=== PATIENT | male | born 1935 | race Caucasian/White ===

== ENCOUNTER → 2020-09-04 09:52 | Outpatient (BNVA) | payer MEDICARE, SELFPAY | PROVIDERS: PCP Hospitalist; Referring Provider Internal Medicine Medical Oncology; Visit Provider Hospitalist | DX: J44.9 Chronic obstructive pulmonary disease, unspecified (principal); R93.89 Abnormal findings on diagnostic imaging of other specified body structures; G47.33 Obstructive sleep apnea (adult) (pediatric) | CPT/HCPCS: 99212 ==

== ENCOUNTER → 2021-01-22 09:53 | Outpatient (REF) | payer MEDICARE, SELFPAY | LOC: HO.SL 09:53 | PROVIDERS: PCP Hospitalist; Visit Provider Hospitalist | DX: G47.33 Obstructive sleep apnea (adult) (pediatric) (principal) | CPT/HCPCS: 95806 ==

== ENCOUNTER → 2021-03-08 10:24 | Outpatient (BNVA) | payer MEDICARE, SELFPAY | PROVIDERS: PCP Hospitalist; Visit Provider Hospitalist | DX: G47.33 Obstructive sleep apnea (adult) (pediatric) (principal); J41.0 Simple chronic bronchitis; R93.89 Abnormal findings on diagnostic imaging of other specified body structures | CPT/HCPCS: 99212 ==

== ENCOUNTER → 2021-06-06 10:50 | Outpatient (BNVA) | payer MEDICARE, SELFPAY | PROVIDERS: PCP Hospitalist; Visit Provider Hospitalist | DX: G47.33 Obstructive sleep apnea (adult) (pediatric) (principal); J41.0 Simple chronic bronchitis; R93.89 Abnormal findings on diagnostic imaging of other specified body structures | CPT/HCPCS: 99212 ==

== ENCOUNTER → 2021-08-29 09:29 | Outpatient (BNVA) | payer MEDICARE, SELFPAY | PROVIDERS: PCP Hospitalist; Visit Provider Hospitalist | DX: G47.33 Obstructive sleep apnea (adult) (pediatric) (principal); J41.0 Simple chronic bronchitis; R93.89 Abnormal findings on diagnostic imaging of other specified body structures | CPT/HCPCS: 99212 ==

== ENCOUNTER → 2021-12-07 10:54 | Outpatient (BNVA) | payer MEDICARE, SELFPAY | PROVIDERS: PCP Hospitalist; Visit Provider Hospitalist | DX: G47.33 Obstructive sleep apnea (adult) (pediatric) (principal); J41.0 Simple chronic bronchitis; J84.9 Interstitial pulmonary disease, unspecified; R93.89 Abnormal findings on diagnostic imaging of other specified body structures | CPT/HCPCS: 99212 ==

== ENCOUNTER → 2022-10-07 09:50 | Outpatient (BNVA) | payer MEDICARE, SELFPAY | PROVIDERS: PCP Hospitalist; Visit Provider Hospitalist | DX: J41.0 Simple chronic bronchitis (principal); G47.33 Obstructive sleep apnea (adult) (pediatric); R93.89 Abnormal findings on diagnostic imaging of other specified body structures; J84.9 Interstitial pulmonary disease, unspecified | CPT/HCPCS: 99212 ==

== ENCOUNTER 2024-02-19 06:07 | Outpatient (REF) | payer MEDICARE, SELFPAY ==
[2024-02-19 06:15] LABS: MANUAL DIFF FLAG NO
[2024-02-19 06:28] LABS: Basophils Percent Auto 0.5 % (0-2); Eosinophils Absolute Auto 0.5 X10*3/uL (0.0-0.4); Eosinophils Percent Auto 8.2 % (0-4); Hematocrit 38.3 % (42.0-52.0); Hemoglobin 12.2 g/dl (14.0-18.0); Imm Gran Abs Auto 0.01 X10*3/uL (0.00-0.03); Imm Gran Pct Auto 0.2 % (0.0-0.4); Lymphocytes Absolute Auto 1.1 X10*3/uL (1.2-4.9); Lymphocytes Percent Auto 19.1 % (20-40); Mean Corpuscular HGB Conc 31.9 g/dl (31.0-36.0); Mean Corpuscular Hemoglobin 29.8 pg (27.0-33.0); Mean Corpuscular Volume 93.6 fL (80.0-98.0); Mean Platelet Volume 9.6 fL (9.4-12.4); Monocytes Absolute Auto 0.6 X10*3/uL (0.1-1.2); Monocytes Percent Auto 10.4 % (2-11); Neutrophils Absolute Auto 3.5 x10*3/uL (2.0-8.3); Neutrophils Percent Auto 61.6 % (45-73); Platelet Count 124 X10*3/uL (160-400); Red Blood Count 4.09 X10*6/uL (4.60-5.80); White Blood Count 5.6 X10*3/uL (4.8-10.8)
[2024-02-19 06:41] LABS: Alanine Aminotransferase 140 U/L (0-40); Alkaline Phosphatase 119 U/L (39-117); Anion Gap 10 (12-20); Aspartate Amino Transferase 116 U/L (5-37); Bilirubin Total 0.7 mg/dL (0.0-1.0); Blood Urea Nitrogen 24 mg/dL (9-16); Calcium 8.3 mg/dL (8.4-10.2); Carbon Dioxide 21 mmol/L (22-29); Chloride 116 mmol/L (96-108); Cholesterol 88 mg/dL (<200); Estimated Glomerular Filt Rate 52; Glucose Random 100 mg/dL (60-115); HDL Cholesterol 31 mg/dL (>40); Iron 42 mcg/dL (45-160); LDL Cholesterol Calculated 39 mg/dL (<100); Percent Iron Saturation 15 % (15-50); Potassium 3.6 mmol/L (3.3-5.1); Sodium 143 mmol/L (135-145); Total Iron Binding Capacity 272 mcg/dL (228-428); Total Protein 5.4 g/dL (6.5-8.0); Triglycerides 92 mg/dL (<150); Unsaturated Iron Binding 230 ug/dL
[2024-02-19 06:42] LABS: Estimated Average Glucose 160 mg/dL; Hemoglobin A1c % 7.2 % (<6.0)
[2024-02-19 06:55] LABS: Ferritin 137 ng/mL (20-250); Thyroid Stimulating Hormone 0.79 uIU/mL (0.32-4.0)
[2024-02-19 07:07] LABS: Folate 6.6 ng/mL (> or = 4.0); Vitamin B12 486 pg/mL (200-900)
== END 2024-02-19 06:08 | disposition home or self-care (01) ==
LOC: HO.HSH4W 06:07
PROVIDERS: Visit Provider Internal Medicine
DX: Z13.89 Encounter for screening for other disorder (principal)
CPT/HCPCS: 36415; 80053; 80061; 82607; 82728; 82746; 83036; 83540; 84443; 85025

== ENCOUNTER 2024-02-20 06:48 | Outpatient (REF) | payer MEDICARE, SELFPAY ==
[2024-02-20 08:41] LABS: HBS Num1 0.39 mIU/mL (0-7.99); HBc Num1 0.11 S/CO (0.00-0.79); HBsAGNum1 0.32 S/CO (0.00-0.99); Hepatitis B Core Antibody Nonreactive (Nonreactive); Hepatitis B Surface Antigen Negative (Negative); ~HepC Num1 0.06 S/CO (0.00-0.79); ~Hepatitis B Surface Antibody NONREACTIVE (Nonreactive); ~Hepatitis C Antibody Nonreactive (Nonreactive)
[2024-02-20 08:42] LABS: Hepatitis A Antibody IgG REACTIVE (Nonreactive); Hepatitis A Antibody IgM 0.34 Index (0-0.79); ~Hepatitis A Antibody IgG 12.11 S/CO (0.00-0.99); ~Hepatitis A Antibody IgM Nonreactive (Nonreactive)
== END 2024-02-20 06:49 | disposition home or self-care (01) ==
LOC: HO.HSH4W 06:48
PROVIDERS: Visit Provider Internal Medicine
DX: D64.9 Anemia, unspecified (principal); R79.89 Other specified abnormal findings of blood chemistry
CPT/HCPCS: 36415; 86704; 86706; 86708; 86709; 86803; 87340

== ENCOUNTER 2024-03-01 06:11 | Outpatient (REF) | payer MEDICARE, SELFPAY ==
[2024-03-01 06:15] LABS: MANUAL DIFF FLAG NO
[2024-03-01 07:06] LABS: Basophils Absolute Auto 0.1 X10*3/uL (0.0-0.2); Basophils Percent Auto 0.7 % (0-2); Eosinophils Absolute Auto 0.6 X10*3/uL (0.0-0.4); Eosinophils Percent Auto 7.5 % (0-4); Hematocrit 41.7 % (42.0-52.0); Hemoglobin 13.2 g/dl (14.0-18.0); Imm Gran Abs Auto 0.02 X10*3/uL (0.00-0.03); Imm Gran Pct Auto 0.3 % (0.0-0.4); Lymphocytes Absolute Auto 1.2 X10*3/uL (1.2-4.9); Lymphocytes Percent Auto 15.8 % (20-40); Mean Corpuscular HGB Conc 31.7 g/dl (31.0-36.0); Mean Corpuscular Volume 97.9 fL (80.0-98.0); Mean Platelet Volume 9.6 fL (9.4-12.4); Monocytes Absolute Auto 0.7 X10*3/uL (0.1-1.2); Monocytes Percent Auto 9.4 % (2-11); Neutrophils Absolute Auto 5.1 x10*3/uL (2.0-8.3); Neutrophils Percent Auto 66.3 % (45-73); Platelet Count 128 X10*3/uL (160-400); Red Blood Count 4.26 X10*6/uL (4.60-5.80); Red Cell Distribution Width 15.6 % (11.0-16.0); White Blood Count 7.7 X10*3/uL (4.8-10.8)
[2024-03-01 07:08] LABS: Alanine Aminotransferase 76 U/L (0-40); Albumin Level 3.3 g/dL (3.5-5.0); Alkaline Phosphatase 108 U/L (39-117); Aspartate Amino Transferase 76 U/L (5-37); Bilirubin Direct 0.3 mg/dL (0.0-0.5); Bilirubin Total 0.8 mg/dL (0.0-1.0)
== END 2024-03-01 06:12 | disposition home or self-care (01) ==
LOC: HO.HSH4W 06:11
PROVIDERS: Visit Provider Internal Medicine
DX: D64.9 Anemia, unspecified (principal); R79.89 Other specified abnormal findings of blood chemistry
CPT/HCPCS: 36415; 80076; 85025

== ENCOUNTER 2024-03-10 06:11 | Outpatient (REF) | payer MEDICARE, SELFPAY ==
[2024-03-10 06:53] LABS: Anion Gap 12 (12-20); Blood Urea Nitrogen 26 mg/dL (9-16); Calcium 8.7 mg/dL (8.4-10.2); Carbon Dioxide 22 mmol/L (22-29); Chloride 111 mmol/L (96-108); Estimated Glomerular Filt Rate 47; Glucose Random 103 mg/dL (60-115); Potassium 4.9 mmol/L (3.3-5.1); Sodium 140 mmol/L (135-145)
== END 2024-03-10 06:12 | disposition home or self-care (01) ==
LOC: HO.HSH4W 06:11
PROVIDERS: Visit Provider Internal Medicine
DX: E11.9 Type 2 diabetes mellitus without complications (principal); N18.9 Chronic kidney disease, unspecified
CPT/HCPCS: 36415; 80048

== ENCOUNTER 2024-03-31 06:35 | Outpatient (REF) | payer MEDICARE, SELFPAY ==
[2024-03-31 07:18] LABS: Alanine Aminotransferase 49 U/L (0-40); Albumin Level 3.3 g/dL (3.5-5.0); Alkaline Phosphatase 106 U/L (39-117); Anion Gap 10 (12-20); Aspartate Amino Transferase 33 U/L (5-37); Bilirubin Total 0.8 mg/dL (0.0-1.0); Blood Urea Nitrogen 33 mg/dL (9-16); Carbon Dioxide 22 mmol/L (22-29); Chloride 113 mmol/L (96-108); Estimated Glomerular Filt Rate 58; Glucose Random 92 mg/dL (60-115); Potassium 5.3 mmol/L (3.3-5.1); Sodium 140 mmol/L (135-145)
[2024-03-31 07:22] LABS: B Type Natriuretic Peptide 150 pg/mL (<100)
== END 2024-03-31 06:36 | disposition home or self-care (01) ==
LOC: HO.HSH4W 06:35
PROVIDERS: Visit Provider Internal Medicine
DX: I50.9 Heart failure, unspecified (principal); I48.91 Unspecified atrial fibrillation; R79.89 Other specified abnormal findings of blood chemistry
CPT/HCPCS: 36415; 80053; 83880

== ENCOUNTER 2024-04-06 06:57 | Outpatient (REF) | payer MEDICARE, SELFPAY ==
[2024-04-06 07:55] LABS: Anion Gap 12 (12-20); Blood Urea Nitrogen 39 mg/dL (9-16); Calcium 9.2 mg/dL (8.4-10.2); Carbon Dioxide 19 mmol/L (22-29); Chloride 113 mmol/L (96-108); Estimated Glomerular Filt Rate 54; Glucose Random 104 mg/dL (60-115); Potassium 5.7 mmol/L (3.3-5.1); Sodium 138 mmol/L (135-145)
== END 2024-04-06 06:58 | disposition home or self-care (01) ==
LOC: HO.HSH4W 06:57
PROVIDERS: Visit Provider Internal Medicine
DX: I50.9 Heart failure, unspecified (principal); E11.9 Type 2 diabetes mellitus without complications
CPT/HCPCS: 36415; 80048

== ENCOUNTER 2024-04-13 05:51 | Outpatient (REF) | payer MEDICARE, SELFPAY ==
[2024-04-13 06:29] LABS: Anion Gap 8 (12-20); Blood Urea Nitrogen 48 mg/dL (9-16); Calcium 8.7 mg/dL (8.4-10.2); Carbon Dioxide 19 mmol/L (22-29); Chloride 121 mmol/L (96-108); Estimated Glomerular Filt Rate 43; Glucose Random 86 mg/dL (60-115); Potassium 5.7 mmol/L (3.3-5.1); Sodium 142 mmol/L (135-145)
== END 2024-04-13 05:52 | disposition home or self-care (01) ==
LOC: HO.HSH4W 05:51
PROVIDERS: Visit Provider Internal Medicine
DX: N18.9 Chronic kidney disease, unspecified (principal); E11.9 Type 2 diabetes mellitus without complications; E87.5 Hyperkalemia
CPT/HCPCS: 36415; 80048

== ENCOUNTER 2024-04-16 06:15 | Outpatient (REF) | payer MEDICARE, SELFPAY ==
[2024-04-16 07:40] LABS: Alanine Aminotransferase 57 U/L (0-40); Albumin Level 3.2 g/dL (3.5-5.0); Alkaline Phosphatase 102 U/L (39-117); Anion Gap 11 (12-20); Aspartate Amino Transferase 33 U/L (5-37); Bilirubin Total 0.6 mg/dL (0.0-1.0); Blood Urea Nitrogen 43 mg/dL (9-16); Calcium 8.9 mg/dL (8.4-10.2); Carbon Dioxide 17 mmol/L (22-29); Chloride 119 mmol/L (96-108); Estimated Glomerular Filt Rate 53; Glucose Random 106 mg/dL (60-115); Potassium 4.9 mmol/L (3.3-5.1); Sodium 142 mmol/L (135-145); Total Protein 5.8 g/dL (6.5-8.0)
== END 2024-04-16 06:16 | disposition home or self-care (01) ==
LOC: HO.HSH4W 06:15
PROVIDERS: Nurse Practitioner Family; Visit Provider Nurse Practitioner
DX: E87.5 Hyperkalemia (principal)
CPT/HCPCS: 36415; 80053

== ENCOUNTER 2024-04-20 05:28 | Outpatient (REF) | payer MEDICARE, SELFPAY ==
[2024-04-20 06:58] LABS: Anion Gap 9 (12-20); Blood Urea Nitrogen 47 mg/dL (9-16); Calcium 8.6 mg/dL (8.4-10.2); Carbon Dioxide 18 mmol/L (22-29); Chloride 120 mmol/L (96-108); Estimated Glomerular Filt Rate 42; Glucose Fasting 120 mg/dL (60-99); Potassium 5.2 mmol/L (3.3-5.1); Sodium 142 mmol/L (135-145)
== END 2024-04-20 05:29 | disposition home or self-care (01) ==
LOC: HO.HSH4W 05:28
PROVIDERS: Visit Provider Internal Medicine
DX: E11.9 Type 2 diabetes mellitus without complications (principal); N18.9 Chronic kidney disease, unspecified; I50.9 Heart failure, unspecified
CPT/HCPCS: 36415; 80048

== ENCOUNTER 2024-04-28 06:25 | Outpatient (REF) | payer MEDICARE, SELFPAY ==
[2024-04-28 07:32] LABS: Anion Gap 9 (12-20); Blood Urea Nitrogen 41 mg/dL (9-16); Calcium 8.7 mg/dL (8.4-10.2); Carbon Dioxide 15 mmol/L (22-29); Chloride 122 mmol/L (96-108); Estimated Glomerular Filt Rate 41; Glucose Random 79 mg/dL (60-115); Potassium 5.4 mmol/L (3.3-5.1); Sodium 141 mmol/L (135-145)
[2024-04-28 07:37] LABS: B Type Natriuretic Peptide 133 pg/mL (<100)
== END 2024-04-28 06:26 | disposition home or self-care (01) ==
LOC: HO.HSH4W 06:25
PROVIDERS: Visit Provider Internal Medicine
DX: I50.9 Heart failure, unspecified (principal); N18.9 Chronic kidney disease, unspecified
CPT/HCPCS: 36415; 80048; 83880

== ENCOUNTER 2024-05-06 05:30 | Outpatient (REF) | payer MEDICARE, SELFPAY ==
[2024-05-06 07:14] LABS: Blood Urea Nitrogen 35 mg/dL (9-16); Calcium 8.4 mg/dL (8.4-10.2); Carbon Dioxide 22 mmol/L (22-29); Chloride 115 mmol/L (96-108); Estimated Glomerular Filt Rate 46; Glucose Fasting 139 mg/dL (60-99); Potassium 4.2 mmol/L (3.3-5.1); Sodium 141 mmol/L (135-145)
[2024-05-06 07:25] LABS: Anion Gap 8 (12-20)
== END 2024-05-06 05:31 | disposition home or self-care (01) ==
LOC: HO.HSH4W 05:30
PROVIDERS: Visit Provider Internal Medicine
DX: N18.9 Chronic kidney disease, unspecified (principal); E87.5 Hyperkalemia
CPT/HCPCS: 36415; 80048

== ENCOUNTER 2024-07-20 14:26 | Outpatient (REF) | payer MEDICARE, SELFPAY | END 2024-07-20 14:27 | disposition home or self-care (01) | LOC: HO.HSH4W 14:26 | PROVIDERS: Visit Provider Internal Medicine | DX: Z13.89 Encounter for screening for other disorder (principal) | CPT/HCPCS: 87070; 87205 ==

== ENCOUNTER 2024-07-21 06:21 | Outpatient (REF) | payer MEDICARE, SELFPAY ==
[2024-07-21 06:24] LABS: MANUAL DIFF FLAG NO
[2024-07-21 06:48] LABS: Basophils Absolute Auto 0.1 X10*3/uL (0.0-0.2); Basophils Percent Auto 0.7 % (0-2); Eosinophils Absolute Auto 0.6 X10*3/uL (0.0-0.4); Eosinophils Percent Auto 7.8 % (0-4); Hemoglobin 15.2 g/dl (14.0-18.0); Imm Gran Abs Auto 0.02 X10*3/uL (0.00-0.03); Imm Gran Pct Auto 0.2 % (0.0-0.4); Lymphocytes Absolute Auto 1.2 X10*3/uL (1.2-4.9); Lymphocytes Percent Auto 14.5 % (20-40); Mean Corpuscular HGB Conc 32.3 g/dl (31.0-36.0); Mean Corpuscular Hemoglobin 30.5 pg (27.0-33.0); Mean Corpuscular Volume 94.4 fL (80.0-98.0); Mean Platelet Volume 10.4 fL (9.4-12.4); Monocytes Absolute Auto 0.8 X10*3/uL (0.1-1.2); Monocytes Percent Auto 9.1 % (2-11); Neutrophils Absolute Auto 5.6 x10*3/uL (2.0-8.3); Neutrophils Percent Auto 67.7 % (45-73); Platelet Count 130 X10*3/uL (160-400); Red Blood Count 4.98 X10*6/uL (4.60-5.80); Red Cell Distribution Width 14.6 % (11.0-16.0); White Blood Count 8.2 X10*3/uL (4.8-10.8)
[2024-07-21 07:26] LABS: Erythrocyte Sedimentation Rate 4 MM/HR (0-15)
== END 2024-07-21 06:22 | disposition home or self-care (01) ==
LOC: HO.HSH4W 06:21
PROVIDERS: Visit Provider Internal Medicine
DX: M86.9 Osteomyelitis, unspecified (principal)
CPT/HCPCS: 36415; 85025; 85652

== ENCOUNTER 2024-08-25 05:32 | Outpatient (REF) | payer MEDICARE, SELFPAY ==
[2024-08-25 05:36] LABS: MANUAL DIFF FLAG NO
[2024-08-25 06:02] LABS: Basophils Percent Auto 0.4 % (0-2); Eosinophils Absolute Auto 0.6 X10*3/uL (0.0-0.4); Eosinophils Percent Auto 8.7 % (0-4); Hemoglobin 13.5 g/dl (14.0-18.0); Imm Gran Abs Auto 0.03 X10*3/uL (0.00-0.03); Imm Gran Pct Auto 0.4 % (0.0-0.4); Lymphocytes Absolute Auto 1.1 X10*3/uL (1.2-4.9); Mean Corpuscular HGB Conc 31.4 g/dl (31.0-36.0); Mean Corpuscular Hemoglobin 30.2 pg (27.0-33.0); Mean Corpuscular Volume 96.2 fL (80.0-98.0); Mean Platelet Volume 10.1 fL (9.4-12.4); Monocytes Absolute Auto 0.8 X10*3/uL (0.1-1.2); Monocytes Percent Auto 11.1 % (2-11); Neutrophils Absolute Auto 4.7 x10*3/uL (2.0-8.3); Neutrophils Percent Auto 64.4 % (45-73); Platelet Count 118 X10*3/uL (160-400); Red Blood Count 4.47 X10*6/uL (4.60-5.80); Red Cell Distribution Width 14.7 % (11.0-16.0); White Blood Count 7.3 X10*3/uL (4.8-10.8)
[2024-08-25 06:24] LABS: Albumin Level 3.2 g/dL (3.5-5.0); Alkaline Phosphatase 181 U/L (39-117); Anion Gap 12 (12-20); Aspartate Amino Transferase 62 U/L (5-37); Bilirubin Total 0.6 mg/dL (0.0-1.0); Blood Urea Nitrogen 45 mg/dL (9-16); Calcium 8.4 mg/dL (8.4-10.2); Carbon Dioxide 17 mmol/L (22-29); Chloride 116 mmol/L (96-108); Estimated Glomerular Filt Rate 40; Glucose Random 263 mg/dL (60-115); Potassium 4.6 mmol/L (3.3-5.1); Sodium 140 mmol/L (135-145); Total Protein 6.3 g/dL (6.5-8.0)
[2024-08-25 06:35] LABS: Alanine Aminotransferase 119 U/L (0-40)
== END 2024-08-25 05:33 | disposition home or self-care (01) ==
LOC: HO.HSH4W 05:32
PROVIDERS: Visit Provider Internal Medicine
DX: N18.9 Chronic kidney disease, unspecified (principal); D64.9 Anemia, unspecified
CPT/HCPCS: 36415; 80053; 85025

== ENCOUNTER 2024-09-17 05:49 | Outpatient (REF) | payer MEDICARE, SELFPAY ==
[2024-09-17 06:01] LABS: Ammonia 38 umol/L (13-55)
== END 2024-09-17 05:50 | disposition home or self-care (01) ==
LOC: HO.HSH4W 05:49
PROVIDERS: Visit Provider Internal Medicine
DX: R79.89 Other specified abnormal findings of blood chemistry (principal)
CPT/HCPCS: 36415; 82140

== ENCOUNTER 2024-11-25 06:06 | Outpatient (REF) | payer MEDICARE, SELFPAY ==
[2024-11-25 06:09] LABS: MANUAL DIFF FLAG NO
--- OUTSIDE RECORDS SUMMARY | 2024-11-25 06:09 | XMS_ITS | Clinical Summary ---
Author Organization [facility] Address [address] [facility] [address] [place] [address] Phone Care Team Providers Care Manager Privacy Name Role Phone Chris Newman MD Primary Care Provider [phone] Allergies No known active allergies Medications acetaminophen (TYLENOL) 500 MG tablet Take 325 mg by mouth 4 (four) times a day if needed Active apixaban (ELIQUIS) 5 MG tablet Take 1 tablet by mouth 2 (two) times a day Active lisinopril-hydr oCHLOROthiazide (PRINZIDE,ZESTO RETIC) 20-25 MG per tablet Take 1 tablet by mouth 1 (one) time each day Active rosuvastatin (CRESTOR) 20 MG tablet Take 1 tablet by mouth every night Active terazosin (HYTRIN) 1 MG capsule Take 1 tablet by mouth 1 (one) time each day Active aspirin (ST YO) 81 MG EC tablet Take 81 mg by mouth 1 (one) time each day Active omega-3 (FISH OIL) 1000 MG capsule Take 1,000 mg by mouth 3 times a day Active Magnesium Cl-Calcium Carbonate (Slow-Mag) 71.5-119 MG tablet delayed-release Take 1 tablet by mouth 2 (two) times a day Active glyBURIDE micronized (GLYNASE) 3 MG tablet Take 3 mg by mouth 1 (one) time each day Active metFORMIN (GLUCOPHAGE) 1000 MG tablet Take 1,000 mg by mouth 1 (one) time each day Active glyBURIDE (DIABETA) 5 MG tablet Take 5 mg by mouth 1 (one) time each day with breakfast 1 Active metFORMIN (GLUCOPHAGE) 500 MG tablet Take 500 mg by mouth 1 Active albuterol HFA (PROVENTIL HFA;VENTOLIN HFA) 108 (90 Base) MCG/ACT inhaler 1 Active PENICILLIN V POTASSIUM PO Take 500 mg by mouth 2 (two) times a day Active Active Problems Problem Noted Date Diagnosed Date 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 Alcohol intake above recommended sensible limits 12/03/2021 Tobacco dependence syndrome 12/03/2021 Stage 3a chronic kidney disease 05/30/2021 Atrial fibrillation 05/29/2021 Chronic obstructive pulmonary disease 05/29/2021 Disorder due to type 2 diabetes mellitus 021 Hypertension 05/29/2021 Obstructive sleep apnea syndrome 05/29/2021 Osteoarthritis 05/29/2021 Resolved Problems Problem Noted Date Diagnosed Date Resolved Date Cellulitis of unspecified part of limb 12/03/2021 06/11/2022 Mixed hyperlipidemia 05/29/2021 022 Diabetes mellitus 02/23/2020 05/30/2021 Atrial fibrillation 02/23/2020 05/30/20 21 Chronic obstructive pulmonary disease 02/23/2020 05/30/2021 Hyperlipidemia 02/23/2020 06/11/2022 Immunizations Name Administration Dates Next Due Influenza Split High Dose Preservative Free IM 0 07/26/2019 Zoster 04/14/2020,11/02/2019 Social History Tobacco Use Types Packs/Day Years Used Date Smoking Tobacco: Former Cigars Smokeless Tobacco: Never Tobacco Cessation:Counseling Given: No Alcohol Use Standard Drinks/Week Comments Not Asked 0 (1 standard drink = 0.6 oz pur e alcohol) occasionally Sex and Gender Information Value Date Recorded Sex Assigned at Not on file Legal Sex Male 2:31 PM EDT Gender Identity Not on file Sexual Orientation Not on file Last Filed Vital Signs Vital Sign Reading Time Taken Comments Blood Pressure 160/92 10/07/2023 8:35 AM EST Pulse 78 10/07/2023 8:35 AM EST Temperature - - Respiratory Rate - - Oxygen Saturation 93% 10/07/2023 8:35 AM EST Inhaled Oxygen Concentration - - Weight 89.4 kg (197 lb) 10/07/2023 8:35 AM EST Height 188 cm (6' 2 ) 10/07/2023 8:35 AM EST Body Mass Index 25.29 10/07/2023 8:35 AM EST Plan of Treatment Health Maintenance Due Date Last Done Comments Pneumococcal Vaccine: 65+ Ye ars (1 of 2 - PCV) 1941 Diabetes: Ophthalmology Exam 04/13/2021 Diabetes: Pedal Pulse Checked 04/13/2021 Diabetes: Sensory Foot Exam 04/13/2021 Diabetes: Visual Foot Exam 04/13/2021 Diabetes: Hemoglobin A1C 02/26/2022 11/29/2021 Influenza Vaccine (#1) 2024 07/26/2019 Hepatitis B Vaccine Aged Out No longe r eligible based on patient's age to complete this topic Procedures Procedure Name Priority Date/Time Associated Diagnosis Comments HEMOGLOBIN A1C Routine 11/29/2021 8:16 AM EST from Last 3 Months or Most Recently Relevant to Health Maintenance Results * (ABNORMAL) Hemoglobin A1c (11/29/2021 8:16 AM EST) Hemoglobin A1C 8.1(H) (4.0-5.6) % [facility] Comment: MONITORING: In known diabetic patients, hemoglobin A1c targets should be discussed with health care provider. DIAGNOSTIC USE: ??The [place] Diabetes Association (ADA) and the World Health Organization (WHO) recommend the use of HbA1c to diagnose diabetes using a threshold of 6.5%. Patients who have an HbA1c between 5.7% and 6.4% are considered at increased risk for developing diabetes in the future. CAUTION: Falsely low HbA1c results may be observed in patients with hemolytic anemia, homozygous forms of abnormal hemoglobin (e.g. SS, CC, SC), , recent blood loss or hemoglobin F greater than 7%. Fructosamine may be used as an alternate test in these cases. REFERENCE: ADA: Standards of Medical Care in Diabetes 2020, The Journal of Clinical and Applied Research and Education Volume 43, Supplement 1 Testing performed or reported by [facility], a Service of [facility], [address] [place] [id number] Isaac Flores MD, Stage Settings Painter [facility]# [id number] 11/29/2021 8:16 AM EST 11/29/2021 8:26 AM EST us Otoniel Peacock MD LAB BLOOD ORDERABLES Final Re sult [facility] from Last 3 Months or Most Recently Relevant to Health Maintenance Insurance [employer] [place] [id number] [employer] Care Teams Manager Privacy Relationship Specialty Start Date End Date Chris Newman MD [address] PCP - General Internal Medicine 12/12/22
--- OUTSIDE RECORDS SUMMARY | 2024-11-25 06:09 | XMS_ITS | Encounter Summary ---
Author Organization [facility] [place] [address] Care Team Providers Care Rabbit Fancier Name Role Phone Eusebio Maradiaga MD Primary Care Provider [phone] Encounter Details Date Type Department Care Team (Late st Contact Info) Description 11/10/2024 Telephone [facility] - [facility] [address] [facility] 154 [place] [phone] Anisha Mills MD 300 [facility] 154 [place] [address] Social History Tobacco Use Types Packs/Day Years Used Date Smoking Tobacco: Former Cigarettes 1 17 1 [birth year]/16/1947 - 10/15/1965 Smokeless Tobacco: Never Alcohol Use Standard Drinks/Week Comments Yes 0 (1 standard drink = 0.6 oz pur e alcohol) Sex and Gender Information Value Date Recorded Sex Assigned at Not on file Gender Identity Not on file Sexual Orientation Not on file documented as of this encounter Progress Notes * Lawrence Valle - 11/10/2024 11:49 AM EST [facility]. She told me to call back at 3 or 3:30 todaybecause now is not a good time to send a manual transmission. documented in this encounter Plan of Treatment Not on file documented as of this encounter Visit Diagnoses Not on filedocumented in this encounter Care Teams Rabbit Fancier Relationship Specialty Start Date End Date Eusebio Maradiaag MD [address] [place] [address] PCP - General Internal Medicine 09/11/12 documented as of this encounter
--- OUTSIDE RECORDS SUMMARY | 2024-11-25 06:09 | XMS_ITS | Encounter Summary ---
Author Organization [facility] [place] [address] Care Team Providers Care Restaurant Crew Name Role Phone Eusebio Maradiaga MD Primary Care Provider [phone] Encounter Details Date Type Department Care Team (Late st Contact Info) Description 11/23/2024 Telephone [facility] - [facility] [address] [facility] 154 [place] [phone] Anisha Mills MD 300 [facility] 154 [place] [address] Social History Tobacco Use Types Packs/Day Years [...] encounter Progress Notes * Lawrence Valle - 11/23/2024 4:25 PM EST Spoke with Daughter Vanessa, she works at the [employer] and isn't pleased with the fact that thenurses have not been sending through those manual transmissions. She will be doing this tomorrow with him and will give us a call tomorrow if she needs anything. I am going to send her a letter with the transmission dates needed for her fathers monitor. documented in this encounter Plan of Treatment Not on file documented as of this encounter Visit Diagnoses Not on filedocumented in this encounter Care Teams Restaurant Crew Relationship Specialty Start Date End Date Eusebio Maradiaga MD [address] [place] [address] PCP - General Internal Medicine 09/11/12 documented as of this encounter
--- OUTSIDE RECORDS SUMMARY | 2024-11-25 06:09 | XMS_ITS | Continuity of Care Document ---
Author Name [facility] Organization [facility] Care Team Providers Care Entry Processor Name Role Phone [facility] Unavailable Unavailable Medications Combined list of outpatient medications from Department of Defense and Veterans Affairs facilities.Medications provided include 1) outpatient medications from the last 15 months, and 2) patient-reported medications. Medication Details Route Status Patient Instructions Prescription Expires Prescription Number Last Dispense Date Ordering Provider Order Date Order Qty Source APIXABAN 5MG TAB TAKE ONE-HALF TABLET BY MOUTH EVERY 12 HOURS ORAL ACTIVE DEE DEE JACOBO 2022 IELD ASPIRIN 81MG TAB,EC TAKE ONE TABLET BY MOUTH ONCE DAILY ORAL ACTIVE DEE DEE JACOBO 2022 IELD FISH OIL 1000MG (500MG DHA/EPA) CAP,ORAL TAKE 1 CAPSULE BY MOUTH EVERY 12 HOURS ORAL ACTIVE DEE DEE JACOBO 2022 IELD GLYBURIDE 5MG TAB TAKE ONE TABLET BY MOUTH ONCE DAILY ORAL ACTIVE DEE DEE JACOBO 2022 IELD HYDROCHLORO THIAZIDE 12.5MG/ALBERTA NOPRIL 20MG TAB TAKE ONE TABLET BY MOUTH ONCE DAILY ORAL ACTIVE DEE DEE JACOBO 2022 IELD MAGNESIUM OXIDE TAB TAKE 200MG BY MOUTH ONCE DAILY ORAL ACTIVE DEE DEE JACOBO 2022 IELD METFORMIN HCL 1000MG TAB TAKE ONE TABLET BY MOUTH EVERY MORNING ORAL ACTIVE DEE DEE JACOBO 2022 IELD PENICILLIN V K 250MG TAB TAKE ONE TABLET BY MOUTH EVERY 12 HOURS ORAL ACTIVE DEE DEE JACOBO 2022 IELD ROSUVASTATI N CA 40MG TAB TAKE ONE-HALF TABLET BY MOUTH ONCE DAILY ORAL ACTIVE DEE DEE JACOBO 2022 IELD TERAZOSIN HCL 1MG CAP TAKE 1 CAPSULE BY MOUTH EVERY EVENING ORAL ACTIVE DEE DEE JACOBO 2022 IELD Immunizations Combined list of available immunizations from the Department of Defense and Veterans Affairs facilities. Immunization Series Date Given Administered By Site Reaction Lot Number CVX Code Drug Enforcement Safety Officer Status Comments Source INFLUENZA, UNSPECIFIED FORMULATION 2021 88 complet ed [facility] Encounters Combined list of: 1) Encounters from Department of Veterans Affairs facilities going back up to thelast 18 months. 2) Encounters from the Department of Defense facilities going back up to 280 months. Location Location Details Encounter Type Encounter Number Reason For Visit Attending Provider ADM Date DC Date Status Disposition Source [facility] Outpatient Encounter [id number] 05/26 [facility] Outpatient [facility]counter [id number] 05/30 [facility] Outpatient [facility]counter [id number] 07/01 [facility] Outpatient [facility]counter [id number] 07/16 [facility] Outpatient [facility]counter [id number] 07/25 [facility] Outpatient [facility]counter [id number] 07/30 [facility] Outpatient Encounter [id number] 08/06 [facility] Outpatient [facility]counter [id number] 08/12 [facility] Outpatient [facility]counter [id number] 08/12 [facility] Outpatient [facility]counter [id number] 08/21 [facility] Out[facility]counter [id number] 08/25 [facility] Outpatient [facility]counter [id number] 09/17 [facility] Outpatient [facility]counter [id number] 10/06 [facility] Outpatient Encounter [id number] 11/03 [facility] Outpatient [facility]counter [id number] 11/05 [facility] Out[facility] Encounter [id number] 11/14 [facility] Outpatient Encounter [id number] 11/25 [facility] Outpatient [facility]counter [id number] 01/12 [facility] Outpatient [facility]counter [id number] 05/17 [facility] Social History Combined list of available smoking, tobacco, and other social history from Department of Defense and Veterans Affairs facilities. Social History Type Response Date Comment Sourc e Tobacco smoking status [facility]-TOBACCO NEVER USED 12/03/[address] [place] [address]
[2024-11-25 06:19] LABS: Basophils Percent Auto 0.5 % (0-2); Eosinophils Absolute Auto 0.5 X10*3/uL (0.0-0.4); Eosinophils Percent Auto 7.2 % (0-4); Hematocrit 45.5 % (42.0-52.0); Hemoglobin 14.5 g/dl (14.0-18.0); Imm Gran Abs Auto 0.03 X10*3/uL (0.00-0.03); Imm Gran Pct Auto 0.4 % (0.0-0.4); Lymphocytes Absolute Auto 1.2 X10*3/uL (1.2-4.9); Lymphocytes Percent Auto 15.6 % (20-40); Mean Corpuscular HGB Conc 31.9 g/dl (31.0-36.0); Mean Corpuscular Hemoglobin 30.3 pg (27.0-33.0); Mean Platelet Volume 10.1 fL (9.4-12.4); Monocytes Absolute Auto 0.8 X10*3/uL (0.1-1.2); Monocytes Percent Auto 10.7 % (2-11); Neutrophils Absolute Auto 4.8 x10*3/uL (2.0-8.3); Neutrophils Percent Auto 65.6 % (45-73); Platelet Count 107 X10*3/uL (160-400); Red Blood Count 4.79 X10*6/uL (4.60-5.80); Red Cell Distribution Width 15.2 % (11.0-16.0); White Blood Count 7.4 X10*3/uL (4.8-10.8)
[2024-11-25 06:40] LABS: Anion Gap 11 (12-20); Blood Urea Nitrogen 57 mg/dL (9-16); Calcium 8.9 mg/dL (8.4-10.2); Carbon Dioxide 17 mmol/L (22-29); Chloride 114 mmol/L (96-108); Estimated Glomerular Filt Rate 36; Glucose Fasting 101 mg/dL (60-99); Potassium 5.9 mmol/L (3.3-5.1); Sodium 136 mmol/L (135-145)
[2024-11-25 06:58] LABS: Erythrocyte Sedimentation Rate 2 MM/HR (0-15)
== END 2024-11-25 06:07 | disposition home or self-care (01) ==
LOC: HO.HSH4W 06:06
PROVIDERS: Visit Provider Internal Medicine
DX: N18.9 Chronic kidney disease, unspecified (principal); E11.9 Type 2 diabetes mellitus without complications; L97.509 Non-pressure chronic ulcer of other part of unspecified foot with unspecified severity
CPT/HCPCS: 36415; 80048; 85025; 85652

== ENCOUNTER 2024-11-29 06:09 | Outpatient (REF) | payer MEDICARE, SELFPAY ==
--- OUTSIDE RECORDS SUMMARY | 2024-11-29 06:12 | XMS_ITS | Continuity of Care Document ---
Author Name [facility] Organization [facility] Care Team Providers Care Wet And Dry Sugar Bin Operator Name Role Phone [facility] Unavailable Unavailable Medications Combined list of outpatient [...] Site Reaction Lot Number CVX Code Drug Tare Worker Status Comments Source INFLUENZA, UNSPECIFIED FORMULATION 2021 [...] [facility] [id number] 05/26 [facility] Out[facility]counter [id number] 05/30 [facility] Outpatient Encounter [id number] 07/01 [facility] Outpatient Encounter [id number] 07/16 [facility] Out[facility] Encounter [id number] 07/25 [facility] Out[facility]counter [id number] 07/30 [facility] Out[facility] Encounter [id number] 08/06 [facility] Out[facility] Encounter [id number] 08/12 [facility] Out[facility] Encounter [id number] 08/12 [facility] Out[facility] Encounter [id number] 08/21 [facility] Out[facility]counter [id number] 08/25 [facility] Out[facility]counter [id number] 09/17 [facility] Out[facility]counter [id number] 10/06 [facility] Outpatient Encounter [id number] 11/03 [facility] Out[facility]counter [id number] 11/05 [facility] Outpatient [facility]counter [id number] 11/14 [facility] Outpatient Encounter [id number] 11/25 [facility] Outpatient Encounter [id number] 01/12 [facility] Outpatient Encounter [id number] 05/17 [facility] Social History Combined list of available smoking, tobacco, and other social history from Department of Defense and Veterans Affairs facilities. Social History Type Response Date Comment Sourc e Tobacco smoking status MEIS VA-TOBACCO NEVER USED 12/03/[address] [place] [address]
--- OUTSIDE RECORDS SUMMARY | 2024-11-29 06:12 | XMS_ITS | Encounter Summary ---
Author Organization [place] [address] Care Team Providers Care Preboarder Name Role Phone Eusebio Maradiaga MD Primary Care Provider [phone] Encounter Details Date Type Department Care Team (Late st Contact Info) Description 11/10/2024 Telephone [facility] - [facility] 154 [address] [facility] 154 [place] [phone] Anisha Mills MD [address] [facility] 154 [place] [address] Social History Tobacco Use Types Packs/Day Years [...] on filedocumented in this encounter Care Teams Preboarder Relationship Specialty Start Date End Date Eusebio Maradiaga MD [address] [place] [address] PCP - General Internal Medicine 09/11/12 documented as of this encounter
--- OUTSIDE RECORDS SUMMARY | 2024-11-29 06:12 | XMS_ITS | Clinical Summary ---
Author Organization [facility] Address [address] [place] [address] Care Team Providers Care Vocational Adviser Name Role Phone Eusebio Maradiaga MD Primary Care Provider [phone] Encounters Date Type Department Care Team Description 11/23/2024 Telephone [facility] - [address] [place] [address] Anisha Mills MD 11/10/2024 Telephone [facility] - [address] [place] [address] Anisha Mills MD 10/13/2024 Telephone [facility] - [address] [place] [address] Anisha Mills MD from Last 3 Months Surgical History Surgery Date Site/Laterality Comments HAND SURGERY PROCEDURE: HISTORICAL HAND SURGERY Medical History Medical History Date Comments Hyperlipidemia 02/24/2018 DX:Hyperlipidemi a Arthritis 05/22/2017 DX:Arthritis History of rheumatic fever 05/22/2017 DX:Hi story of rheumatic fever Hypertension 05/22/2017 DX:Hypertension CKD (chronic kidney disease) stage 3, GFR 30-59 ml/min ([facility]) 10/08/2018 DX:CKD (chronic kidney dise ase) stage 3, GFR 30-59 ml/min ([facility]) Type 2 diabetes mellitus wit h renal manifestations ([facility]) 05/22/2017 DX:Type 2 diabetes mellitus with renal manifestations ([facility]) COPD (chronic obstructive pu lmonary disease) ([facility]) 07/07/2017 DX:COPD (chronic obstructive pulmonary disease) ([facility]) Pulmonary fibrosis ([facility]) 07/07/2017 DX: Pulmonary fibrosis ([facility]) Atrial fibrillation ([facility]) 05/15/2018 DX :Atrial fibrillation ([facility]) RENZO (obstructive sleep apnea) 07/07/2017 DX :RENZO (obstructive sleep apnea); COMMENT: [facility] Home Polysomnogram: Date 09/14/2018; AHI 22, Unclassified apneas 0; Obstructive apneas 50; Central apneas 2; Mixed apneas 0; hypopneas 89; average oxygen saturation 95% (lowest 81% without saturations <88% for 5% or more of study) - Obstructive Sleep Apnea - moderate; mostly hypopneas and obstructive apneas; without sleep related hypoventilation by 2* GERD (gastroesophageal reflu x disease) DX:GERD (gastroesophageal re flux disease) HTN (hypertension) DX:HTN (hyper tension) History of BPH DX:History of BP H Recurrent bacteremia DX:Recurren t bacteremia Hypomagnesemia DX:Hypomagnesemi a Family History Medical History Relation Name Comments Diabetes Brother Heart attack Father Relation Name Status Comments Brother Father Social History Tobacco Use Types Packs/Day Years Used Date Smoking Tobacco: Former Cigarettes 1 17 1 [birth year]/16/1947 - 10/15/1965 Smokeless Tobacco: Never Alcohol Use Standard Drinks/Week Comments Yes 0 (1 standard drink = 0.6 oz pur e alcohol) Sex and Gender Information Value Date Recorded Sex Assigned at Not on file Gender Identity Not on file Sexual Orientation Not on file Obstetrics History Last Filed Vital Signs Vital Sign Reading Time Taken Comments Blood Pressure 100/60 04/22/2024 1:20 PM EDT Sitting R Arm Pulse 62 04/22/2024 1:20 PM EDT Temperature - - Respiratory Rate - - Oxygen Saturation - - Inhaled Oxygen Concentration - - Weight 86.9 kg (191 lb 9.6 oz) 04/22/2024 1:20 PM EDT Height 189.2 cm (6' 2.5 ) 04/22/2024 1: 20 PM EDT Body Mass Index 24.27 04/22/2024 1:20 PM EDT Plan of Treatment Health Maintenance Due Date Last Done Comments COVID-19 Vaccine (#1) 1940 Pneumococcal Vaccine: 65+ Ye ars (1 of 2 - PCV) 1941 Diabetes: Annual Foot Exam 1945 Diabetes: Annual Retina Eye Exam 1945 DTaP,Tdap,and Td Vaccines (1 - Tdap) 1954 Zoster Vaccines (1 of 2) 1985 RSV Immunization Patients 60 + Years Old (1 - 1-dose 75+ series) 2010 Cholesterol Screening (Lipid Panel) 01/27/2024 Depression Screening 01/27/2024 Falls Risk Assessment 01/27/2024 Social Influencers of Health Screening 01/27/2024 Diabetes: Blood Sugar Contro l Test (HGBA1C) 05/18/2024 Hypertension/CHF/CAD Annual BMP Blood Test 05/18/2024 Influenza Vaccine (#1) 2024 HIB Vaccines Aged Out No longer eligi ble based on patient's age to complete this topic HPV Vaccines Aged Out No longer eligi ble based on patient's age to complete this topic Hepatitis A Vaccines Aged Out No long er eligible based on patient's age to complete this topic Hepatitis B Vaccines Aged Out No long er eligible based on patient's age to complete this topic IPV Vaccines Aged Out No longer eligi ble based on patient's age to complete this topic MMR Vaccines Aged Out No longer eligi ble based on patient's age to complete this topic Meningococcal ACWY Vaccine Aged Out N o longer eligible based on patient's age to complete this topic RSV Immunization Patients Un derrell 20 months Aged Out No longer eligible b ased on patient's age to complete this topic Varicella Vaccines Aged Out No longer eligible based on patient's age to complete this topic Care Teams Vocational Adviser Relationship Specialty Start Date End Date Eusebio Maradiaga MD [address] [place] [address] PCP - General Internal Medicine 09/11/12
--- OUTSIDE RECORDS SUMMARY | 2024-11-29 06:12 | XMS_ITS | Encounter Summary ---
Author Organization [facility] [place] [address] Care Team Providers Care Shoe Stitcher Name Role Phone Eusebio Maradiaga MD Primary Care Provider [phone] Encounter Details Date Type Department Care Team (Late st Contact Info) Description 11/23/2024 Telephone [facility] - [facility] [address] [facility] 154 [place] [phone] Anisha Mills MD 300 [facility] 154 [place] [address] Social History Tobacco Use Types Packs/Day Years [...] with Daughter Vanessa, she works at the [employer] and isn't pleased with the fact [...] on filedocumented in this encounter Care Teams Shoe Stitcher Relationship Specialty Start Date End Date Eusebio Maradiaga MD [address] [place] [address] PCP - General Internal Medicine 09/11/12 documented as of this encounter
--- OUTSIDE RECORDS SUMMARY | 2024-11-29 06:12 | XMS_ITS | Clinical Summary ---
Author Organization [facility] Address [address] [facility] 20 0 [place] [address] Phone Care Team Providers Care Duco Polisher Name Role Phone Chris Newman MD Primary Care Provider [phone] Allergies No known active allergies Medications acetaminophen [...] AM EST) Hemoglobin A1C 8.1(H) (4.0-5.6) % [facility] Comment: MONITORING: In known diabetic patients, hemoglobin A1c targets should be discussed with health care provider. DIAGNOSTIC USE: ??The [place] Diabetes Association (ADA) and the World Health [...] Supplement 1 Testing performed or reported by [facility], a Service of [facility], [address] [place] [id number] Isaac Flores MD, Deck Officer [facility]# [id number] 11/29/2021 8:16 AM EST 11/29/2021 8:26 AM EST us Otoniel Peacock MD LAB BLOOD ORDERABLES Final Re sult [facility] from Last 3 Months or Most Recently Relevant to Health Maintenance Insurance [facility] [employer] [place] [id number] [employer] Care Teams Duco Polisher Relationship Specialty Start Date End Date Chris Newman MD [address] PCP - General Internal Medicine 12/12/22
[2024-11-29 08:58] LABS: Estimated Average Glucose 154 mg/dL; Hemoglobin A1C 199.6963 umol/L; Total Hemoglobin (HGBA1C) 3761.9175 umol/L
== END 2024-11-29 06:10 | disposition home or self-care (01) ==
LOC: HO.HSH4W 06:09
PROVIDERS: Visit Provider Internal Medicine
DX: E11.9 Type 2 diabetes mellitus without complications (principal)
CPT/HCPCS: 36415; 83036

== ENCOUNTER 2024-12-06 07:53 | Outpatient (REF) | payer MEDICARE, SELFPAY ==
--- OUTSIDE RECORDS SUMMARY | 2024-12-06 07:58 | XMS_ITS | Clinical Summary ---
Author Organization [facility] Address [address] [facility] [address] 0 [place] [address] Phone Care Team Providers Care Measurement Analyst Name Role Phone Chris Newman MD Primary Care Provider [phone] Allergies No known active allergies Medications acetaminophen [...] AM EST) Hemoglobin A1C 8.1(H) (4.0-5.6) % [facility] Comment: MONITORING: In known diabetic patients, hemoglobin A1c targets should be discussed with health care provider. DIAGNOSTIC USE: ??The [place] Diabetes Association (ADA) and the World Health [...] Supplement 1 Testing performed or reported by [facility], a Service of [facility], [address] [place] [id number] Isaac Flores MD, Acquisition Cost Estimator [facility]# [id number] 11/29/2021 8:16 AM EST 11/29/2021 8:26 AM EST us Otoniel Peacock MD LAB BLOOD ORDERABLES Final Re sult [facility] from Last 3 Months or Most Recently Relevant to Health Maintenance Insurance [employer] [place] [id number] [employer] Care Teams Measurement Analyst Relationship Specialty Start Date End Date Chris Newman MD [address] PCP - General Internal Medicine 12/12/22
--- OUTSIDE RECORDS SUMMARY | 2024-12-06 07:58 | XMS_ITS | Encounter Summary ---
Author Organization [facility] [place] [address] Care Team Providers Care Sliver Chopper Name Role Phone Eusebio Maradiaga MD Primary Care Provider [phone] Encounter Details Date Type Department Care Team (Late st Contact Info) Description 11/30/2024 10:15 PM EST Ancillary Procedure [facility] - [address] [facility] [address] [place] [address] Social History Tobacco Use Types Packs/Day Years Used Date Smoking Tobacco: Former Cigarettes 1 17 1 [birth year]/16/1947 - 10/15/1965 Smokeless Tobacco: Never Alcohol Use Standard Drinks/Week Comments Yes 0 (1 standard drink = 0.6 oz pur e alcohol) Sex and Gender Information Value Date Recorded Sex Assigned at Not on file Legal Sex Male 8:44 AM EDT Gender Identity Not on file Sexual Orientation Not on file documented as of this encounter Plan of Treatment Not on file documented as of this encounter Procedures Procedure Name Priority Date/Time Associated Diagnosis Comments CARDIAC DEVICE CHECK- REMOTE- MURJ Routine 11/30/2024 10:10 PM EST documented in this encounter Results * Cardiac device check - Remote- MURJ (11/30/2024 10:10 PM EST) Date Time Interrogation Session [id number] CV DEVICE CHECK Type Interrogation Session Remote CV DEVICE CHECK Implantable Pulse Generator Rayon Coner FANI CV DEVICE CHECK Implantable Pulse Generator Type IPG CV DEVICE CHECK Implantable Pulse Generator Model [id number] CV DEVICE CHECK Implantable Pulse Generator Serial Number [id number] CV DEVICE CHECK Implantable Pulse Generator Implant Date 20230130 CV DEVICE CHECK Battery Remaining Longevity 96.0 CV DEVICE CHECK Battery Voltage 3.020 CV D EVICE CHECK Battery QUENCHING MACHINE OPERATOR Trigger 2.558 CV DEVICE CHECK Battery Status Middle of Service CV DEVICE CHECK Ronni Statistic RV Percent Paced 98.28 CV DEVICE CHECK Lead Channel Sensing Intrinsic Amplitude 5.963 CV DEVICE CHECK Lead Channel Setting Sensing Sensitivity 1.50 CV DEVICE CHECK Lead Channel Impedance Value 600 CV DEVICE CHECK Lead Channel Pacing Threshold Amplitude 0.375 CV DEVICE CHECK Lead Channel Pacing Threshold Pulse Width 0.2 CV DEVICE CHECK Lead Channel RV Pacing Threshold Date 2024-11-24 CV DEVICE CHECK Lead Channel Setting Pacing Amplitude 0.875 CV DEVICE CHECK Lead Channel Setting Pacing Pulse Width 0.2 CV DEVICE CHECK Ronni Setting Mode (NBG Code) VVIR CV DEVICE CHECK Ronni Setting Lower Rate Limit 60 CV DEVICE CHECK Ronni Setting Maximum Sensor Rate 120 CV DEVICE CHECK Date of Service 2024-11-30 CV DEVICE CHECK Anatomical Region Laterality Modality Device Interroga tion 11/24/2024 8:18 AM EST Impressions 11/30/2024 12:58 PM EST Normal Remote: No Events * Normal Device Function * Alerts or events: None * Battery: OK, 8.00 yrs * Sensing, impedance and thresholds reviewed * Programmed parameters reviewed * Presenting rhythm reviewed * Heart Rate Histograms reviewed * No significant changes noted Narrative Procedure Note Anisha Mills MD - 11/30/2024 IMPRESSION: Normal Remote: No Events * Normal Device Function * Alerts or events: None * Battery: OK, 8.00 yrs * Sensing, impedance and thresholds reviewed * Programmed parameters reviewed * Presenting rhythm reviewed * Heart Rate Histograms reviewed * No significant changes noted Anisha Mills MD CV IMPLANTABLE CARDIAC DEV ICE PROCEDURES Final Result documented in this encounter Visit Diagnoses Not on filedocumented in this encounter Care Teams Sliver Chopper Relationship Specialty Start Date End Date Eusebio Maradiaga MD [address] [place] [address] PCP - General Internal Medicine 09/11/12 documented as of this encounter
--- OUTSIDE RECORDS SUMMARY | 2024-12-06 07:58 | XMS_ITS | Encounter Summary ---
Author Organization [facility] [place] [address] Care Team Providers Care Lace Pinner Name Role Phone Eusebio Maradiaga MD Primary Care Provider [phone] Encounter Details Date Type Department Care Team (Late st Contact Info) Description 11/23/2024 Telephone [facility] - [facility] [address] [facility] 154 [place] [id number] Anisha Mills MD [address] [facility] 154 [place] [address] Social History Tobacco Use Types Packs/Day Years [...] with Daughter Vanessa, she works at the [employer] and isn't pleased with the fact [...] on filedocumented in this encounter Care Teams Lace Pinner Relationship Specialty Start Date End Date Eusebio Maradiaga MD [address] [place] [address] PCP - General Internal Medicine 09/11/12 documented as of this encounter
--- OUTSIDE RECORDS SUMMARY | 2024-12-06 07:58 | XMS_ITS | Continuity of Care Document ---
Author Name [facility] Organization [facility] Care Team Providers Care Coconut Jelly Roller Name Role Phone [facility] Unavailable Unavailable Medications Combined list of outpatient [...] Site Reaction Lot Number CVX Code Drug Grades 1 Through 6 Teacher Status Comments Source INFLUENZA, UNSPECIFIED FORMULATION 2021 88 complet ed [facility] Encounters Combined list of: 1) Encounters from Department of Veterans Affairs facilities going backup to the last 18 months, not all VA inpatient encounters are included; 2) Encounters from the Department of Defense facilities going backup to 280 months. Location Location Details Encounter Type Encounter Number Reason For Visit Attending Provider ADM Date DC Date Status Disposition Source [facility] Outpatient Encounter [id number] 05/26 [facility] Outpatient [facility]counter [id number] 05/30 [facility] Outpatient Encounter [id number] 07/01 [facility] Outpatient [facility]counter [id number] 07/16 [facility] Outpatient Encounter [id number] 07/25 [facility] Outpatient [facility]counter [id number] 07/30 [facility] Outpatient [facility]counter [id number] 08/06 [facility] Outpatient [facility]counter [id number] 08/12 [facility] Outpatient [facility]counter [id number] 08/12 [facility] Outpatient [facility]counter [id number] 08/21 [facility] Outpatient [facility]counter [id number] 08/25 [facility] Outpatient Encounter [id number] 09/17 [facility] Outpatient [facility]counter [id number] 10/06 [facility] Outpatient Encounter [id number] 11/03 [facility] Outpatient [facility]counter [id number] 11/05 [facility] Outpatient [facility]counter [id number] 11/14 [facility] Outpatient [facility]counter [id number] 11/25 [facility] Outpatient [facility]counter [id number] 01/12 [facility] Outpatient Encounter [id number] 05/17 [facility] Social History Combined list of available smoking, tobacco, and other social history from Department of Defense and Veterans Affairs facilities. Social History Type Response Date Comment Sourc e Tobacco smoking status DCIS VA-TOBACCO NEVER USED 12/03/19 23 [place]
--- OUTSIDE RECORDS SUMMARY | 2024-12-06 07:58 | XMS_ITS | Clinical Summary ---
Author Organization Patient Business Ser [facility] Address [address] [place] [address] Care Team Providers Care Internet Sales Director Name Role Phone Eusebio Maradiaga MD Primary Care Provider [phone] Encounters Date Type Department Care Team Description 11/30/2024 10:15 PM EST Ancillary Procedure [facility] - [address] [place] [address] 11/23/2024 Telephone [facility] - [address] [place] [address] Anisha Mills MD 11/10/2024 Telephone [facility] - [address] [place] [address] Anisha Mills MD 10/13/2024 Telephone [facility] - [address] [place] [address] Anisha Mills MD from Last 3 Months Surgical History Surgery Date Site/Laterality Comments HAND SURGERY PROCEDURE: HISTORICAL HAND SURGERY Medical History Medical History Date Comments Hyperlipidemia 02/24/2018 DX:Hyperlipidemi a Arthritis 05/22/2017 DX:Arthritis History of rheumatic fever 05/22/2017 DX:Hi story of rheumatic fever Hypertension 05/22/2017 DX:Hypertension CKD (chronic kidney disease) stage 3, GFR 30-59 ml/min ([facility]) 10/08/2018 DX:CKD (chronic kidney dise ase) stage 3, GFR 30-59 ml/min ([facility]) Type 2 diabetes mellitus wit h renal manifestations ([facility]) 05/22/2017 DX:Type 2 diabetes mellitus with renal manifestations ([facility]) COPD (chronic obstructive pu lmonary disease) ([facility]) 07/07/2017 DX:COPD (chronic obstructive pulmonary disease) ([facility]) Pulmonary fibrosis ([facility]) 07/07/2017 DX: Pulmonary fibrosis ([facility]) Atrial fibrillation ([facility]) 05/15/2018 DX :Atrial fibrillation ([facility]) RENZO (obstructive sleep apnea) 07/07/2017 DX :RENZO (obstructive sleep apnea); COMMENT: [facility] Home Polysomnogram: Date 09/14/2018; AHI 22, Unclassified [...] Due Date Last Done Comments Pneumococcal Vaccine: 50+ Years (1 of 2 - PCV) 1941 Diabetes: Annual Foot Exam 1945 Diabetes: Annual Retina Eye Exam 1945 DTaP,Tdap,and Td Vaccines (1 - Tdap) 1954 Hepatitis A Vaccines (1 of 2 - Risk 2-dose series) 1954 Cholesterol Screening (Lipid Panel) 01/27/2024 Depression Screening 01/27/2024 Falls Risk Assessment 01/27/2024 Medicare Annual Wellness Visit 01/27/2024 Social Influencers of Health Screening 01/27/2024 Diabetes: Blood Sugar Control Test (HGBA1C) 05/18/2024 11/29/2021 Hypertension/CHF/CAD Annual BMP Blood Test 05/18/2024 COVID-19 Vaccine ( season) 2024 12/21/2023, 07/25/2022, 03/01/2022, Additional history exists Zoster Vaccines Completed 04/14/2020, 03/27, 11/05/2019, Additional history exists RSV Immunization Patients 60+ Years Old Completed 12/14/2023 Influenza Vaccine Completed 07/29/2024, , 07/29/2023, Additional history exists HIB Vaccines Aged Out No longer eligi [...] to complete this topic RSV Immunization Patients Under 20 months Aged Out No longer eligible based on patient's age to complete this topic Varicella Vaccines Aged Out No longer eligible based on patient's age to complete this topic Medical Devices Implanted Type Area Crime Scene Evidence Technician Device Identifier Shelf Expiration Date Model / Serial / Lot Medt-Card [id number] Implanted:03/2023 (Quantity not on file) Cardiac Pacemaker [employer] - CARDIAC RHYTH-CRDM [id number] / [id number] / Procedures Procedure Name Priority Date/Time Associated Diagnosis Comments CARDIAC DEVICE CHECK- REMOTE- MURJ Routine 11/30/2024 10:10 PM EST from Last 3 Months Results * Cardiac device check - Remote- MURJ (11/30/2024 10:10 PM EST) Date Time Interrogation Session [id number] CV DEVICE CHECK Type Interrogation Session Remote CV DEVICE CHECK Implantable Pulse Generator Crime Scene Evidence Technician MDT CV DEVICE CHECK Implantable Pulse Generator Type IPG CV DEVICE CHECK Implantable Pulse Generator Model [id number] CV DEVICE CHECK Implantable Pulse Generator Serial Number [id number] CV DEVICE CHECK Implantable Pulse Generator Implant Date 20230130 CV DEVICE CHECK Battery Remaining Longevity 96.0 CV DEVICE CHECK Battery Voltage 3.020 CV D EVICE CHECK Battery PULL OUT OPERATOR Trigger 2.558 CV DEVICE CHECK Battery [...] Histograms reviewed * No significant changes noted us Anisha Mills MD CV IMPLANTABLE CARDIAC DEV ICE PROCEDURES Final Result from Last 3 Months Insurance [employer] Care Teams Internet Sales Director Relationship Specialty Start Date End Date Eusebio Maradiaga MD [address] [place] [address] PCP - General Internal Medicine 09/11/12
--- OUTSIDE RECORDS SUMMARY | 2024-12-06 07:58 | XMS_ITS | Encounter Summary ---
Author Organization [facility] [place] [address] Care Team Providers Care Precision Instrument Maker And Repairer Name Role Phone Eusebio Maradiaga MD Primary Care Provider [phone] Encounter Details Date Type Department Care Team (Late st Contact Info) Description 11/10/2024 Telephone [facility] - [facility] [address] [facility] 154 [place] [phone] Anisha Mills MD [address] [facility] 154 [place] [address] Social History Tobacco Use Types Packs/Day Years [...] on filedocumented in this encounter Care Teams Precision Instrument Maker And Repairer Relationship Specialty Start Date End Date Eusebio Maradiaga MD [address] [place] [address] PCP - General Internal Medicine 09/11/12 documented as of this encounter
[2024-12-06 08:31] LABS: Alanine Aminotransferase 166 U/L (0-40); Albumin Level 3.4 g/dL (3.5-5.0); Alkaline Phosphatase 132 U/L (39-117); Anion Gap 10 (12-20); Aspartate Amino Transferase 121 U/L (5-37); Bilirubin Total 0.7 mg/dL (0.0-1.0); Blood Urea Nitrogen 52 mg/dL (9-16); Calcium 8.6 mg/dL (8.4-10.2); Carbon Dioxide 15 mmol/L (22-29); Chloride 123 mmol/L (96-108); Estimated Glomerular Filt Rate 36; Glucose Random 81 mg/dL (60-115); Potassium 5.4 mmol/L (3.3-5.1); Sodium 143 mmol/L (135-145); Total Protein 6.6 g/dL (6.5-8.0)
[2024-12-06 08:36] LABS: B Type Natriuretic Peptide 150 pg/mL (<100)
== END 2024-12-06 07:54 | disposition home or self-care (01) ==
LOC: HO.HSH4W 07:53
PROVIDERS: Visit Provider Internal Medicine
DX: N18.9 Chronic kidney disease, unspecified (principal); I50.9 Heart failure, unspecified
CPT/HCPCS: 36415; 80053; 83880

== ENCOUNTER 2024-12-31 13:19 | Outpatient (REF) | payer MEDICARE, SELFPAY ==
[2024-12-31 13:28] LABS: MANUAL DIFF FLAG NO
[2024-12-31 13:33] LABS: Basophils Percent Auto 0.4 % (0-2); Eosinophils Absolute Auto 0.4 X10*3/uL (0.0-0.4); Eosinophils Percent Auto 6.1 % (0-4); Hematocrit 44.5 % (42.0-52.0); Hemoglobin 13.9 g/dl (14.0-18.0); Imm Gran Abs Auto 0.02 X10*3/uL (0.00-0.03); Imm Gran Pct Auto 0.3 % (0.0-0.4); Lymphocytes Absolute Auto 0.8 X10*3/uL (1.2-4.9); Lymphocytes Percent Auto 12.1 % (20-40); Mean Corpuscular HGB Conc 31.2 g/dl (31.0-36.0); Mean Corpuscular Hemoglobin 29.6 pg (27.0-33.0); Mean Corpuscular Volume 94.7 fL (80.0-98.0); Mean Platelet Volume 10.3 fL (9.4-12.4); Monocytes Absolute Auto 0.6 X10*3/uL (0.1-1.2); Monocytes Percent Auto 8.2 % (2-11); Neutrophils Absolute Auto 4.9 x10*3/uL (2.0-8.3); Neutrophils Percent Auto 72.9 % (45-73); Platelet Count 120 X10*3/uL (160-400); Red Cell Distribution Width 14.1 % (11.0-16.0); White Blood Count 6.7 X10*3/uL (4.8-10.8)
[2024-12-31 13:54] LABS: B Type Natriuretic Peptide 189 pg/mL (<100)
[2024-12-31 14:02] LABS: Anion Gap 11 (12-20); Blood Urea Nitrogen 43 mg/dL (9-16); Calcium 8.2 mg/dL (8.4-10.2); Carbon Dioxide 20 mmol/L (22-29); Chloride 109 mmol/L (96-108); Estimated Glomerular Filt Rate 39; Glucose Random 336 mg/dL (60-115); Potassium 4.9 mmol/L (3.3-5.1); Sodium 135 mmol/L (135-145)
[2024-12-31 14:12] LABS: Erythrocyte Sedimentation Rate 5 MM/HR (0-15)
--- OUTSIDE RECORDS SUMMARY | 2024-12-31 15:02 | XMS_ITS ---
Author Name [facility] Organization [facility] Address [address] [place] [address] Care Team Providers Care Casting Trucker Name Role Phone NATAN ISABELDENVEENA Primary Care Provider Unavail able Insurance Providers: All historical and current Section Date Range: From patient's date of to the date document was created. This section includes the names of all active insurance providers for the patient. Insurance Provider Type of Coverage Plan Name Start of Policy Coverage End of Policy Coverage Group Number Member ID Insurance Provider's Telephone Number Policy Murphy's Name Patient's Relationship to Policy Murphy [facility] (WNR) MEDICARE ADVANTAGE [facility] (WNR) Oct 27, 2013 [facility] [id number] PATIENT Selected Encounter This section includes the information on record at [place] for the Encounter. Date/Time Encounter Type Encounter Description Reason Pro vider Source Dec 23, 2024 01:04 PM Outpatient Encounter PRIMARY CARE/MEDICINE IHE Encounter Template Text not used by [facility] Encounter Notes: All associated encounter notes This section contains the clinical notes associated to the Encounter. Date/Time Encounter Note(s) Provider Source Dec 23, 2024 01:04 PM ADMINISTRATIVE NOT E: LOCAL TITLE: ADMINISTRATIVE NOTE STANDARD TITLE: ADMINISTRATIVE NOTE DATE OF NOTE: DEC 23, 2024@13:04 ENTRY DATE: DEC 23, 2024@13:05:01 AUTHOR: JEANNIE MAURICIO COSIGNER: URGENCY: STATUS: COMPLETED ADMINISTRATIVE NOTE Has ADDENDA Please assist [facility] with scheduling annual follow up appt with provider. 's last office visit at [place] was 11/2022. Please request last non [facility] pcp office visit note and lab results for PACT review. /luis/ LISANDRO RAMESHN RN-BC REGISTERED NURSE Signed: 12/23/2024 13:06 Receipt Acknowledged By: 12/28/2024 16:15 /luis/ HANK CARTAGENA ADVANCED CERTIFIED CODING SPECIALIST 12/28/2024 ADDENDUM STATUS: COMPLETED THIS BINDERY OPERATOR CALLED TO SCHEDULE F2F ANNUAL APPT WITH [facility] [place] PACT EIGHT MD PROVIDER. NO ANSWER, LEFT MESSAGE FOR TO CALL AND SCHEDULE APPT. /luis/ HANK CARTAGENA ADVANCED CERTIFIED CODING SPECIALIST Signed: 12/28/2024 16:15 JEANNIE MAURICIO
--- OUTSIDE RECORDS SUMMARY | 2024-12-31 15:03 | XMS_ITS | Clinical Summary ---
Author Organization Patient Business Ser [facility] Address [address] [place] [address] Care Team Providers Care Public Area Supervisor Name Role Phone Chris Huggins MD Primary Care Provider [phone] Allergies No known active allergies Medications furosemide (LASIX) 20 mg tablet Take 1 tablet (20 mg total) by mouth 1 (one) time each day. Active acetaminophen (TYLENOL) 325 mg tablet Take 2 tablets (650 mg total) by mouth 2 (two) times a day. Active calcium carbonate (TUMS) 500 mg (200 mg elemental calcium) chewable tablet Chew 1 tablet (500 mg total) 2 (two) times a day. Active calcium polycarbophiL 500 mg tablet,chewable Chew 1 tablet 1 (one) time each day. Active carvediloL (COREG) 3.125 mg tablet Take 1 Tablet by mouth 2 times daily (with meals). Active cholestyramine (QUESTRAN) 4 gram packet Take 4 g by mouth 2 times daily. Active escitalopram (LEXAPRO) 10 mg tablet Take 1 tablet (10 mg total) by mouth 1 (one) time each day. Active omega-3 acid ethyl esters (LOVAZA) 1 gram capsule Take 1 capsule (1 g total) by mouth 2 (two) times a day. Active gabapentin (NEURONTIN) 100 mg capsule Take 2 capsules (200 mg total) by mouth 1 (one) time each day. Active melatonin 3 mg tablet Take 1 Tablet by mouth at bedtime. Active traZODone (DESYREL) 50 mg tablet Take 1 tablet (50 mg total) by mouth 1 (one) time each day. Active bisacodyL (DULCOLAX) [address] rectally as needed. Active loperamide (IMODIUM A-D) 2 mg tablet Take 1 tablet (2 mg total) by mouth as needed. Active apixaban (Eliquis) 2.5 mg tablet Take 1 tablet (2.5 mg total) by mouth 2 (two) times a day. 08/11/20 Active rosuvastatin (CRESTOR) 20 mg tablet Take 1 tablet (20 mg total) by mouth 1 (one) time each day. 11/27/19 Active nitroglycerin (NITROSTAT) 0.[address] 1 tablet (0.4 mg total) under the tongue every 5 (five) minutes if needed. 07/25/20 Active methyl salicylate-mentho l 15-10 % ointment Apply topically 3 (three) times a day if needed. Active camphor-menthoL (SARNA) lotion Apply topically if needed for itching. Active lactulose (CHRONULAC) solution Take 15 mL (10 g total) by mouth 1 (one) time each day. Active lisinopriL (PRINIVIL,ZESTRIL ) 5 mg tablet Take 1 tablet (5 mg total) by mouth 1 (one) time each day. Active penicillin v potassium (VEETID) 500 mg tablet Take 1 tablet (500 mg total) by mouth 2 (two) times a day. Active glipiZIDE (GLUCOTROL) 5 mg tablet Take 0.5 Tablets by mouth daily. Discontinu ed(Discont inued by another clinician) potassium chloride 20 mEq tablet extended release Take 1 tablet by mouth 1 (one) time each day. Discontinu ed(Discont inued by another clinician) docusate sodium (COLACE) 100 mg capsule Take 1 capsule (100 mg total) by mouth 1 (one) time each day if needed. Discontinu ed(Discont inued by another clinician) magnesium hydroxide (MILK OF MAGNESIA) 400 mg/5 mL suspension Take 30 mL by mouth at bedtime as needed. Discontinu ed(Discont inued by another clinician) aspirin (ASPIR-81 ORAL) Take by mouth. Discontinu ed(Discont inued by another clinician) Active Problems Problem Noted Date Diagnosed Date Pacemaker 12/27/2024 Overview (12/27/2024): January 2023 - successful placement of Micra leadless pacemaker by Dr. Stover at [facility] Assessment & Plan (12/27/2024 12:06 PM EST): Functioning well on last device check. V pacing 98%. Continue to monitor via [facility] device clinic. Chronic heart failure with preserved ejection fr action 12/27/2024 Assessment & Plan (12/27/2024 12:06 PM EST): Echocardiogram from 2022 showed preserved LV systolic function. He appears compensated on exam. Continue with furosemide, carvedilol and lisinopril. Consider adding SGLT2 inhibitor. We reviewed heart failure management including low- sodium diet, symptom surveillance, daily weights and medication compliance.Orders: Transthoracic echocardiogram (TTE) complete with PRN contrast, bubble, strain, and 3D order panel; Future perflutren lipid microsphere (DEFINITY) 1.3 mL in sodium chloride 0.9% 8.7 mL injection Aortic stenosis 05/10/2023 Overview (12/27/2024): April 2023 - echocardiogram showing preserved left ventricular systolic function LVEF 55 to 60% with basal septal thickening, moderate to severe left atrial dilatation, right atrial dilatation, preserved RV systolic function, moderate to severe aortic stenosis, severe mitral annular calcification and no other significant findings May 2023 - PA 35/11 mmHg with mean of 20 mmHg, PCW 9 mmHg RV 36-1 mmHg with mean of 5 mmHg, RA 5 mmHg, Darrion cardiac output 4.1 L/min, Darrion cardiac index 2.0 L/min/m??, Thermodilution cardiac output 2.8 L/min, Thermodilution cardiac index 1.4 L/min/m??, calculated aortic valve area 1.62 mm?? per Darrion and 1.1 mm?? by thermodilution, all suggestive of moderate aortic stenosis Assessment & Plan (12/27/2024 12:06 PM EST): Moderate on 2022 angiogram. No symptoms currently associated with aortic stenosis. Will update echocardiogram in next six months.Orders: Transthoracic echocardiogram (TTE) complete with PRN contrast, bubble, strain, and 3D order panel; Future perflutren lipid microsphere (DEFINITY) 1.3 mL in sodium chloride 0.9% 8.7 mL injection Dizziness 05/05/2023 Syncope 05/05/2023 Carotid artery disease 07/11/2022 Overview (12/27/2024): August 2022 - carotid ultrasound with bilateral tortuous vessels with atherosclerotic plaque and less then 50% stenosis bilaterally; previously no significant plaque was noted in the left ICA which is now present Assessment & Plan (12/27/2024 12:06 PM EST): Nonobstructive arterial disease. Continue with apixaban, rosuvastatin, carvedilol, furosemide and lisinopril. We discussed risk reduction through lifestyle choices including healthy diet, routine exercise and weight management. Shortness of breath on exertion 07/11/2022 Coronary artery disease invo lving shoshone[place]paiute coronary artery of shoshone[place]paiute heart without angina pectoris 12/28/2020 Overview (12/27/2024): May 2023 - cardiac catheterization showing moderate diffuse disease of the left main, moderate diffuse disease of the LAD which is heavily calcified with 40% stenosis at the proximal subsection of the mid LAD and 70% stenosis at the mid subsection of the mid LAD, 70% stenosis in the mid subsection of OM1, branches that divide the OM1 are diseased, FINANCIAL SPECIALIST of the RCA with collateralization from the left circumflex Assessment & Plan (12/27/2024 12:06 PM EST): Catheterization 2022 showed multivessel disease medically managed. Echocardiogram from 2022 showed preserved LV systolic function LVEF 55-60%. No anginal symptoms. Continue with apixaban, rosuvastatin, carvedilol, furosemide and lisinopril. We discussed risk reduction through lifestyle choices including healthy diet, routine exercise and weight management. CKD (chronic kidney disease) stage 3, GFR 30-59 ml/min 10/08/2018 Longstanding persistent atrial fibrillation 04/27 Assessment & Plan (12/27/2024 12:06 PM EST): Asymptomatic. Rate controlled due to heart block. CHADSVASc - 6. Continue with low dose apixaban and carvedilol. Orders: ECG 12 lead Hyperlipidemia 02/24/2018 Assessment & Plan (12/27/2024 12:06 PM EST): April 2022 - LDL 58. Continue with rosuvastatin. COPD (chronic obstructive pulmonary disease) 08/2017 RENZO (obstructive sleep apnea) 07/07/2017 Overview (12/10/2024): SMS Home Polysomnogram: Date 09/14/2018; AHI 22, Unclassified apneas 0; Obstructive apneas 50; Central apneas 2; Mixed apneas 0; hypopneas 89; average oxygen saturation 95% (lowest 81% without saturations <88% for 5% or more of study) - Obstructive Sleep Apnea - moderate; mostly hypopneas and obstructive apneas; without sleep related hypoventilation by 2018 home polysomnogram. Pulmonary fibrosis 07/07/2017 Arthritis 05/22/2017 Hypertension 05/22/2017 Assessment & Plan (12/27/2024 12:06 PM EST): Controlled. Continue with carvedilol, furosemide, lisinopril. Type 2 diabetes mellitus with renal manifestatio ns 05/22/2017 Encounters Date Type Department Care Team Description 12/27/2024 10:40 AM EST Office Visit [facility] [address] [place] [address] Bashir Morales NP Aortic valve stenosis, etiology of cardiac valve disease unspecified (Primary Dx); Longstanding persistent atrial fibrillation (CMS/HCC); Hypertension, unspecified type; Coronary artery disease involving shosh[place]paiute coronary artery of shoshone[place]paiute heart without angina pectoris; Carotid artery disease, unspecified laterality, unspecified type (CMS/HCC); Hyperlipidemia, unspecified hyperlipidemia type; Pacemaker; Chronic heart failure with preserved ejection fraction ([facility]) 12/27/2024 Telephone [facility] [address] [place] [address] Bashir Morales NP 11/30/2024 10:15 PM EST Ancillary Procedure [facility] [address] [place] [address] 11/23/2024 Telephone [facility] [address] [place] [address] Anisha Mills MD 11/10/2024 Telephone [facility] [address] [place] [address] Anisha Mills MD 10/13/2024 Telephone [facility] [address] [place] [address] Anisha Mills MD from Last 3 Months Surgical History Surgery Date Site/Laterality Comments HAND SURGERY PROCEDURE: HISTORICAL HAND SURGERY Medical History Medical History Date Comments Hyperlipidemia 02/24/2018 DX:Hyperlipidemi a Arthritis 05/22/2017 DX:Arthritis History of rheumatic fever 05/22/2017 DX:Hi story of rheumatic fever Hypertension 05/22/2017 DX:Hypertension CKD (chronic kidney disease) stage 3, GFR 30-59 ml/min ([facility]) 10/08/2018 DX:CKD (chronic kidney dise ase) stage 3, GFR 30-59 ml/min ([facility]) Type 2 diabetes mellitus wit h renal manifestations ([facility]) 05/22/2017 DX:Type 2 diabetes mellitus with renal manifestations ([facility]) COPD (chronic obstructive pu lmonary disease) ([facility]) 07/07/2017 DX:COPD (chronic obstructive pulmonary disease) ([facility]) Pulmonary fibrosis ([facility]) 07/07/2017 DX: Pulmonary fibrosis ([facility]) Atrial fibrillation ([facility]) 05/15/2018 DX :Atrial fibrillation ([facility]) RENZO (obstructive sleep apnea) 07/07/2017 DX :RENZO (obstructive sleep apnea); COMMENT: [facility] Home Polysomnogram: Date 09/14/2018; AHI 22, [...] Sign Reading Time Taken Comments Blood Pressure 120/70 12/27/2024 10:52 AM EST Pulse 89 12/27/2024 10:52 AM EST Temperature - - Respiratory Rate - - Oxygen Saturation 94% 12/27/2024 10:52 AM EST Inhaled Oxygen Concentration - - Weight 84.8 kg (187 lb) 12/27/2024 10:52 AM EST Height 189.2 cm (6' 2.5 ) 12/27/2024 10:52 AM ES T Body Mass Index 23.69 12/27/2024 10:52 AM EST Plan of Treatment Upcoming Encounters Date Type Department Care Team (Late st Contact Info) Description 06/30/2025 2:00 PM EDT Office Visit [facility] [address] [place] [address] Roman Drake MD [address] [place] [address],[address] [address] Health Maintenance Due Date Last Done Comments Diabetes: Annual Foot Exam 1945 Diabetes: Annual Retina Eye Exam 1945 DTaP,Tdap,and Td Vaccines (1 - Tdap) 1954 Hepatitis A Vaccines (1 of 2 - Risk 2-dose series) 1954 Pneumococcal Vaccine: 50+ Years (1 of 2 - PCV) 1954 Depression Screening 01/27/2024 Falls Risk Assessment 01/27/2024 Medicare Annual Wellness Visit 01/27/2024 Social Influencers of Health Screening 01/27/2024 Diabetes: Blood Sugar Control Test (HGBA1C) 05/18/2024 11/29/2021, 10/15/2018 Hypertension/CHF/CAD Annual BMP Blood Test 05/18/2024 08/20/2021 COVID-19 Vaccine ( season) 2024 12/21/2023, 07/25/2022, 03/01/2022, Additional history exists Cholesterol Screening (Lipid Panel) 08/20/2026 08/20/2021 Zoster Vaccines Completed 04/14/2020, 03/27, 11/05/2019, Additional [...] patient's age to complete this topic Meningococcal B Vacine Aged Out No lo nger eligible based on patient's age to complete this topic RSV Immunization Patients Under 20 months Aged Out No longer eligible based on patient's age to complete this topic Varicella Vaccines Aged Out No longer eligible based on patient's age to complete this topic Medical Devices Implanted Type Area [employer] [place] Roofer Helper Device Identifier Shelf Expiration Date Model / Serial / Lot Medt-Card [id number] Implanted:03/2023 (Quantity not on file) Cardiac Pacemaker [employer] - CARDIAC [id number] / [id number] / Procedures Procedure Name Priority Date/Time Associated Diagnosis Comments ECG 12-LEAD Routine 12/27/2024 12:06 PM EST Longstanding persistent atrial fibrillation (CMS/HCC) CARDIAC DEVICE CHECK- REMOTE- MURJ Routine 11/30/2024 10:10 PM EST ANNUAL BMP BLOOD TEST Routine 08/20/2021 LIPID PANEL Routine 08/20/2021 HEMOGLOBIN A1C Routine 10/15/2018 from Last 3 Months or Most Recently Relevant to Health Maintenance Results * ECG 12 lead (12/27/2024 12:06 PM EST) Ventricular Rate ECG 77 BPM GEMUSE Atrial Rate 122 BPM GEMUSE QRS Duration 166 ms GEMUSE Q-T Interval 438 ms GEMUSE QTc 495 ms GEMUSE R Erie 115 degrees GEMUSE T Erie -35 degrees GEMUSE ECG Interpretation Ventricular- paced rhythm Abnormal ECG When compared with ECG of 16-JUL-2021 11:34, Ventricular- paced rhythm is-now present Vent. rate has increased BY ??31 BPM Confirmed by ROMAN DRAKE ([id number]) on 12/27/2024 12:48:40 PM GEMUSE 12/27/2024 10:4 8 AM EST 12/27/2024 12:48 PM EST us Bashir Morales [employer] ECG ORDERABLES Edited Resu lt - Final GEMUSE * Cardiac device check - Remote- MURJ (11/30/2024 10:10 PM EST) Date Time Interrogation Session [id number] CV DEVICE CHECK Type Interrogation Session Remote CV DEVICE CHECK Implantable Pulse Generator [employer] Roofer Helper MDT CV DEVICE CHECK Implantable Pulse Generator Type IPG CV DEVICE CHECK Implantable Pulse Generator Model [id number] CV DEVICE CHECK Implantable Pulse Generator Serial Number [id number] CV DEVICE CHECK Implantable Pulse Generator Implant Date 20230130 CV DEVICE CHECK Battery Remaining Longevity 96.0 CV DEVICE CHECK Battery Voltage 3.020 CV D EVICE CHECK Battery CARGO SUPERVISOR Trigger 2.558 CV DEVICE CHECK Battery Status [...] Lower Rate Limit 60 CV DEVICE CHECK Ornni Setting Maximum Sensor Rate 120 CV DEVICE [...] Histograms reviewed * No significant changes noted Result [facility] Anisha Mills MD CV IMPLANTABLE CARDIAC DEV ICE PROCEDURES Final Result * Annual BMP Blood Test (08/20/2021) Pathologist [facility] Annual BMP Blood Test abstracted Historical Provider HEALTH MAINTENANCE Final Result * Lipid panel (08/20/2021) LDL/HDL Ratio 3 0 - 4 Triglycerides 82 0 - 150 mg/dL Cholesterol 115 0 - 200 mg/dL HDL 44 >=40 mg/dL LDL Cholesterol 55 0 - 100 mg/dL Blood Venous blood specimen / Unknown Historical Provider LAB BLOOD ORDERABLES Cynthia l Result * (ABNORMAL) Hemoglobin A1c (10/15/2018) Hemoglobin A1C 9.1(A) <=6.5 % Blood Venous blood specimen / Unknown Historical Provider LAB BLOOD ORDERABLES Cynthia l Result from Last 3 Months or Most Recently Relevant to Health Maintenance Insurance [employer] Care Teams Public Area Supervisor Relationship Specialty Start Date End Date Chris Huggins MD [address] [place] [address] PCP - General Internal Medicine 12/23/24
--- OUTSIDE RECORDS SUMMARY | 2024-12-31 15:03 | XMS_ITS | Encounter Summary ---
Author Organization [employer] Address [address] [place] [address] Care Team Providers Care Visual Merchandising Associate Name Role Phone Chris Huggins MD Primary Care Provider [phone] Reason for Referral * Imaging (Routine) - Pending Review Specialty Diagnoses / Procedures Referred By Ney sandhu Referred To Contact Cardiology Diagnoses Aortic valve stenosis, etiology of cardiac valve disease unspecified Chronic heart failure with preserved ejection fraction (CMS/HCC) Procedures Transthoracic echocardiogram (TTE) complete with PRN contrast, bubble, strain, and 3D order panel TX TTE W 2D IMAGE COMPLETE W DOPPLER ECHO & COLOR FLOW DOPPLER ECHO TX IMELDA 2D COMPLETE W/CONTRAST OR W & WO CONTRAST WITH DOPPLER Bashir Morales NP [address] [place] [address] Car[address]bs [address] [place] [address] Phone: tel: fax: [facility] Referral ID Status Reason Start Date Expiration Date V isits Requested Visits Authorized [id number] Pending Review 12/27/2024 12/27/2025 1 1 Reason for Visit * Reason Comments Follow-up Encounter Details Date Type Department Care Team (Latest Contact Info) Description 12/27/2024 10:40 AM EST Office Visit [facility] [address] [place] [phone] Bashir Morales NP [address] [place] [address] [place] [id number] Aortic valve stenosis, etiology of cardiac valve disease unspecified (Primary Dx); Longstanding persistent atrial fibrillation (CMS/HCC); Hypertension, unspecified type; Coronary artery disease involving [place] coronary artery of [place] heart without angina pectoris; Carotid artery disease, unspecified laterality, unspecified type (CMS/HCC); Hyperlipidemia, unspecified hyperlipidemia type; Pacemaker; Chronic heart failure with preserved ejection fraction (CMS/HCC) Social History Tobacco Use Types Packs/Day Years [...] on file documented as of this encounter Last Filed Vital Signs Vital Sign Reading [...] Mass Index 23.69 12/27/2024 10:52 AM EST documented in this encounter Progress Notes * Bashir Morales NP - 12/27/2024 10:40 AM ESTAssociated Problem(s): Longstanding persistent atrial fibrillation (CMS/HCC) Asymptomatic. Rate controlled due to heart block. CHADSVASc - 6. Continue with low dose apixaban and carvedilol. Orders: ECG 12 lead * Bashir Morales NP - 12/27/2024 10:40 AM ESTAssociated Problem(s): Hypertension Controlled. Continue with carvedilol, furosemide, lisinopril. * Bashir Morales NP - 12/27/2024 10:40 AM ESTAssociated Problem(s): Coronary artery disease involving [place] coronary artery of [place] heart without angina pectoris Catheterization 2022 showed multivessel disease medically managed. Echocardiogram from 2022 showed preserved LV systolic function LVEF 55-60%. No anginal symptoms. Continue with apixaban, rosuvastatin, carvedilol, furosemide and lisinopril. We discussed risk reduction through lifestyle choices including healthy diet, routine exercise and weight management. * Bashir Morales NP - 12/27/2024 10:40 AM ESTAssociated Problem(s): Carotid artery disease (CMS/HCC) Nonobstructive arterial disease. Continue with apixaban, rosuvastatin, carvedilol, furosemide and lisinopril. We discussed risk reduction through lifestyle choices including healthy diet, routine exercise and weight management. * Bashir Morales NP - 12/27/2024 10:40 AM ESTAssociated Problem(s): Hyperlipidemia April 2022 - LDL 58. Continue with rosuvastatin. * Bashir Morales NP - 12/27/2024 10:40 AM ESTAssociated Problem(s): Pacemaker Functioning well on last device check. V pacing 98%. Continue to monitor via [facility] device [facility]. * Bashir Morales NP - 12/27/2024 10:40 AM ESTAssociated Problem(s): Aortic stenosis Moderate on 2022 angiogram. No symptoms currently associated with aortic stenosis. Will update echocardiogram in next six months.Orders: Transthoracic echocardiogram (TTE) complete with PRN contrast, bubble, strain, and 3D order panel; Future perflutren lipid microsphere (DEFINITY) 1.3 mL in sodium chloride 0.9% 8.7 mL injection * Bashir Morales NP - 12/27/2024 10:40 AM ESTAssociated Problem(s): Chronic heart failure with preserved ejection fraction (CMS/HCC) Echocardiogram from 2022 showed preserved LV systolic function. He appears compensated on exam. Continue with furosemide, carvedilol and lisinopril. Consider adding SGLT2 inhibitor. We reviewed heartfailure management including low-sodium diet, symptom surveillance, daily weights and medication com pliance.Orders: Transthoracic echocardiogram (TTE) complete with PRN contrast, bubble, strain, and 3D order panel; Future perflutren lipid microsphere (DEFINITY) 1.3 mL in sodium chloride 0.9% 8.7 mL injection * Bashir Morales NP - 12/27/2024 10:40 AM EST Images from the original note were not included. [facility] PRIMARY MEDICARE BILLER: Roman Drake MD PCP: Chris Huggins MD HPI: I have obtained verbal consent from Mae Hannon prior to the recording. I have advised Mae Hannon that he may refuse the recording and require the recording to be turned off atany time during this encounter. History of Present Illness Mr. Hannon is a very pleasant 89-year-old male with past medical history of coronary artery disease medically managed, moderate aortic stenosis, systemic hypertension, hyperlipidemia, longstanding persistent atrial fibrillation on low-dose apixaban, heart block status post leadless pacemaker,chronic kidney disease, diabetes mellitus, osteoarthritis, carotid artery disease, COPD with pulmonary fibrosis, RENZO. Today he presents for routine follow up. He is accompanied by a staff member from the [facility]. He reports no significant health concerns at present and maintains a general sense of well-being. He is not experiencing any chest discomfort, shortness of breath, palpitations, lightheadedness, or dizziness. He has no peripheral edema and has not required any hospitalizations since his last visit. He does not recall any major surgical procedures, illnesses, or injuries. He resides in a 's home and adheres to his prescribed medication regimen without any reported issues. His medical history includes hospitalizations due to congestive heart failure characterized by fluid retention and dyspnea. However, he has not had any similar episodes recently. No chest pain, palpitations,lightheadedness, presyncope or syncope. No orthopnea, paroxysmal nocturnal dyspnea, abdominal distention, cough or abrupt increases in weight. The patient reports adherence with their medications. SOCIAL HISTORY He resides in a 's home. ACTIVE MEDICATIONS: Outpatient Medications Marked as Taking for the 12/27/24 encounter (Office Visit) with Bashir Morales NP Medication Sig Dispense Refill acetaminophen (TYLENOL) 325 mg tablet Take 2 tablets (650 mg total) by mouth 2 (two) times a day. apixaban (Eliquis) 2.5 mg tablet Take 1 tablet (2.5 mg total) by mouth 2 (two) times a day. bisacodyL (DULCOLAX) [address] rectally as needed. calcium carbonate (TUMS) 500 mg (200 mg elemental calcium) chewable tablet Chew 1 tablet (500 mg total) 2 (two) times a day. calcium polycarbophiL 500 mg tablet,chewable Chew 1 tablet 1 (one) time each day. camphor-menthoL (SARNA) lotion Apply topically if needed for itching. carvediloL (COREG) 3.125 mg tablet Take 1 Tablet by mouth 2 times daily (with meals). cholestyramine (QUESTRAN) 4 gram packet Take 4 g by mouth 2 times daily. escitalopram (LEXAPRO) 10 mg tablet Take 1 tablet (10 mg total) by mouth 1 (one) time each day. furosemide (LASIX) 20 mg tablet Take 1 tablet (20 mg total) by mouth 1 (one) time each day. (Patient taking differently: Take 1 tablet (20 mg total) by mouth. Friday, Friday, Friday) gabapentin (NEURONTIN) 100 mg capsule Take 2 capsules (200 mg total) by mouth 1 (one) time each day. lactulose (CHRONULAC) solution Take 15 mL (10 g total) by mouth 1 (one) time each day. lisinopriL (PRINIVIL,ZESTRIL) 5 mg tablet Take 1 tablet (5 mg total) by mouth 1 (one) time each day. loperamide (IMODIUM A-D) 2 mg tablet Take 1 tablet (2 mg total) by mouth as needed. melatonin 3 mg tablet Take 1 Tablet by mouth at bedtime. methyl salicylate-menthol 15-10 % ointment Apply topically 3 (three) times a day if needed. nitroglycerin (NITROSTAT) 0.[address] 1 tablet (0.4 mg total) under the tongue every 5 (five) minutes if needed. omega-3 acid ethyl esters (LOVAZA) 1 gram capsule Take 1 capsule (1 g total) by mouth 2 (two) timesa day. penicillin v potassium (VEETID) 500 mg tablet Take 1 tablet (500 mg total) by mouth 2 (two) times aday. rosuvastatin (CRESTOR) 20 mg tablet Take 1 tablet (20 mg total) by mouth 1 (one) time each day. traZODone (DESYREL) 50 mg tablet Take 1 tablet (50 mg total) by mouth 1 (one) time each day. PAST MEDICAL HISTORY: Patient Active Problem List Diagnosis Date Noted Date Diagnosed Pacemaker 12/27/2024 - successful placement of Micra leadless pacemaker by Dr. Stover at [facility] Aortic stenosis 05/10/2023 - echocardiogram showing preserved left ventricular systolic function LVEF 55 to 60% withbasal septal thickening, moderate to severe left atrial dilatation, right atrial dilatation, preserved RV systolic function, moderate to severe aortic stenosis, severe mitral annular calcification and no other significant findings May 2023 - PA 35/11 mmHg with mean of 20 mmHg, PCW 9 mmHg RV 36-1 mmHg with mean of 5 mmHg, RA 5mmHg, [place] cardiac output 4.1 L/min, [place] cardiac index 2.0 L/min/m??, Thermodilution cardiac output 2.8 L/min, Thermodilution cardiac index 1.4 L/min/m??, calculated aortic valve area 1.62 mm?? per D[place]ion and 1.1 mm?? by thermodilution, all suggestive of moderate aortic stenosis Dizziness 05/05/2023 Syncope 05/05/2023 Carotid artery disease ([facility]) 07/11/2022 - carotid ultrasound with bilateral tortuous vessels with atherosclerotic plaque and less then 50% stenosis bilaterally; previously no significant plaque was noted in the left ICA whichis now present Shortness of breath on exertion 07/11/2022 Coronary artery disease involving [place] coronary artery of [place] heart without angina pectoris 12/28/2020 - cardiac catheterization showing moderate diffuse disease of the left main, moderate diffuse disease of the LAD which is heavily calcified with 40% stenosis at the proximal subsection ofthe mid LAD and 70% stenosis at the mid subsection of the mid LAD, 70% stenosis in the mid subsection of OM1, branches that divide the OM1 are diseased, MANAGER PRODUCT of the RCA with collateralization from theleft circumflex CKD (chronic kidney disease) stage 3, GFR 30-59 ml/min ([facility]) 10/08/2018 Longstanding persistent atrial fibrillation ([facility]) 05/15/2018 Hyperlipidemia 02/24/2018 COPD (chronic obstructive pulmonary disease) ([facility]) 07/07/2017 RENZO (obstructive sleep apnea) 07/07/2017 [facility] Home Polysomnogram: Date 09/14/2018; AHI 22, Unclassified apneas 0; Obstructive apneas 50; Central apneas 2; Mixed apneas 0; hypopneas 89; average oxygen saturation 95% (lowest 81% without saturations <88% for 5% or more of study) - Obstructive Sleep Apnea - moderate; mostly hypopneas and obstructive apneas; without sleep related hypoventilation by 2018 home polysomnogram. Pulmonary fibrosis ([facility]) 07/07/2017 Arthritis 05/22/2017 Hypertension 05/22/2017 Type 2 diabetes mellitus with renal manifestations ([facility]) 05/22/2017 Resolved Problems No resolved problems to display. ALLERGIES: No Known Allergies SOCIAL HISTORY: Social History Tobacco Use Smoking status: Former Current packs/day: 0.00 Average packs/day: 1 pack/day for 17.0 years (17.0 ttl pk-yrs) Types: Cigarettes Start date: 10/15/1948 Quit date: 10/15/1965 Years since quittin.2 Smokeless tobacco: Never Substance Use Topics Alcohol use: Yes PHYSICAL EXAM: Vitals: 12/27/24 1052 BP: 120/70 BP Location: Left arm Patient Position: Sitting BP Cuff Size: Adult Pulse: 89 SpO2: 94% Weight: 84.8 kg (187 lb) Height: 1.892 m (74.5 ) Physical Exam Constitutional: General: He is not in acute distress. HENT: Head: Normocephalic and atraumatic. Comments: [place] Right Ear: External ear normal. Left Ear: External ear normal. Nose: Nose normal. Mouth/Throat: Mouth: Mucous membranes are moist. Pharynx: No oropharyngeal exudate or posterior oropharyngeal erythema. Eyes: General: No scleral icterus. Extraocular Movements: Extraocular movements intact. Conjunctiva/sclera: Conjunctivae normal. Pupils: Pupils are equal, round, and reactive to light. Neck: Vascular: No carotid bruit, hepatojugular reflux or JVD. Cardiovascular: Rate and Rhythm: Normal rate and regular rhythm. Pulses: Normal pulses. Heart sounds: Murmur heard. Midsystolic murmur is present with a grade of 1/6. No friction rub. No gallop. Pulmonary: Effort: Pulmonary effort is normal. Breath sounds: Normal breath sounds. Comments: Right lung base dry inspiratory crackles Chest: Chest wall: No tenderness. Abdominal: General: Bowel sounds are normal. There is no distension. Palpations: Abdomen is soft. Tenderness: There is no abdominal tenderness. Musculoskeletal: Cervical back: Neck supple. Right lower leg: No edema. Left lower leg: No edema. Skin: General: Skin is warm and dry. Neurological: General: No focal deficit present. Mental Status: He is alert and oriented to person, place, and time. Gait: Gait abnormal. Comments: Steady gait with walker Psychiatric: Mood and Affect: Mood normal. Behavior: Behavior normal. EKG: Encounter Date: 12/27/24 ECG 12 lead Result Value Ventricular Rate ECG 77 Atrial Rate 122 QRS Duration 166 Q-T Interval 438 QTc 495 R Medford 115 T [place]ford -35 ECG Interpretation Ventricular-paced rhythm Abnormal ECG When compared with ECG of 16-JUL-2021 11:34, Wide QRS rhythm has replaced Atrial fibrillation Vent. rate has increased BY 31 BPM *Note: Due to a large number of results and/or encounters for the requested time period, some results have not been displayed. A complete set of results can be found in Results Review. TESTING: Labs available were reviewed. ASSESSMENT/PLAN: Assessment & Plan Longstanding persistent atrial fibrillation (CMS/HCC) Asymptomatic. Rate controlled due to heart block. CHADSVASc - 6. Continue with low dose apixaban and carvedilol. Orders: ECG 12 lead Hypertension, unspecified type Controlled. Continue with carvedilol, furosemide, lisinopril. Coronary artery disease involving [place] coronary artery of [place] heart without angina pectoris Catheterization 2022 showed multivessel disease medically managed. Echocardiogram from 2022 showed preserved LV systolic function LVEF 55-60%. No anginal symptoms. Continue with apixaban, rosuvastatin, carvedilol, furosemide and lisinopril. We discussed risk reduction through lifestyle choices including healthy diet, routine exercise and weight management. Carotid artery disease, unspecified laterality, unspecified type (CMS/HCC) Nonobstructive arterial disease. Continue with apixaban, rosuvastatin, carvedilol, furosemide and lisinopril. We discussed risk reduction through lifestyle choices including healthy diet, routine exercise and weight management. Hyperlipidemia, unspecified hyperlipidemia type April 2022 - LDL 58. Continue with rosuvastatin. Pacemaker Functioning well on last device check. V pacing 98%. Continue to monitor via [facility] device [facility]. Aortic valve stenosis, etiology of cardiac valve disease unspecified Moderate on 2022 angiogram. No symptoms currently associated with aortic stenosis. Will update echocardiogram in next six months.Orders: Transthoracic echocardiogram (TTE) complete with PRN contrast, bubble, strain, and 3D order panel; Future perflutren lipid microsphere (DEFINITY) 1.3 mL in sodium chloride 0.9% 8.7 mL injection Chronic heart failure with preserved ejection fraction (CMS/HCC) Echocardiogram from 2022 showed preserved LV systolic function. He appears compensated on exam. Continue with furosemide, carvedilol and lisinopril. Consider adding SGLT2 inhibitor. We reviewed heart failure management including low-sodium diet, symptom surveillance, daily weights and medication co mpliance.Orders: Transthoracic echocardiogram (TTE) complete with PRN contrast, bubble, strain, and 3D order panel; Future perflutren lipid microsphere (DEFINITY) 1.3 mL in sodium chloride 0.9% 8.7 mL injection Thank you for allowing us to participate in the care of this patient. The patient will follow up insix months with Dr. Drake, sooner PRN. As per AHA guidelines and previously established plan of care by Dr. Roman Drake MD, we discussed the following today: 1. Atrial fibrillation, unspecified type (CMS/HCC) 2. Longstanding persistent atrial fibrillation (CMS/HCC) 3. Hypertension, unspecified type 4. Coronary artery disease involving [place] coronary artery of [place] heart without angina pectoris 5. Carotid artery disease, unspecified laterality, unspecified type (CMS/HCC) 6. Hyperlipidemia, unspecified hyperlipidemia type 7. Pacemaker 8. Aortic valve stenosis, etiology of cardiac valve disease unspecified 9. Snoring 10. Arterial bruit [facility] Cosigned by Roman Drake MD at 12/27/2024 6:41 PM EST documented in this encounter Plan of Treatment Upcoming Encounters Date Type Department Care Team (Late st Contact Info) Description 06/30/2025 2:00 PM EDT Office Visit [facility] [address] [facility] [address] [place] [phone] Roman Drake MD [address] [place] [address] [address] [place] [address] Scheduled Orders Name Type Priority Associated Diagnoses Order Schedule Transthoracic echocardiogram (TTE) complete with PRN contrast, bubble, strain, and 3D order panel Echocardiography Routine Aortic valve stenosis, etiology of cardiac valve disease unspecified Chronic heart failure with preserved ejection fraction (CMS/HCC) 1 Occurrences starting 12/27/2024 until 12/27/2025 documented as of this encounter Procedures Procedure Name Priority Date/Time Associated Diagnosis Comments ECG 12-LEAD Routine 12/27/2024 12:06 PM EST Longstanding persistent atrial fibrillation (CMS/HCC) documented in this encounter Results * ECG 12 lead (12/27/2024 12:06 PM EST) Ventricular Rate ECG 77 BPM GEMUSE Atrial Rate 122 BPM GEMUSE QRS Duration 166 ms GEMUSE Q-T Interval 438 ms GEMUSE QTc 495 ms GEMUSE R Medford 115 degrees GEMUSE T Medford -35 degrees GEMUSE ECG Interpretation Ventricular- paced rhythm Abnormal ECG When compared with ECG of 16-JUL-2021 11:34, Ventricular- paced rhythm is-now present Vent. rate has increased BY ??31 BPM Confirmed by ROMAN DRAKE ([id number]) on 12/27/2024 12:48:40 PM GEMUSE 12/27/2024 10:4 8 AM EST 12/27/2024 12:48 PM EST us Bashir Morales PUNCHING MACHINE OPERATOR ECG ORDERABLES Edited Resu lt - Final GEMUSE documented in this encounter Visit Diagnoses Diagnosis Aortic valve stenosis, etiology of cardiac valve disease unspecified- Primary Longstanding persistent atrial fibrillation (CMS/HCC) Hypertension, unspecified type Coronary artery disease involving [place] coronary artery of [place] heart without angina pectoris Carotid artery disease, unspecified laterality, unspecified type (CMS/HCC) Hyperlipidemia, unspecified hyperlipidemia type Pacemaker Cardiac pacemaker in situ Chronic heart failure with preserved ejection fraction (CMS/HCC) documented in this encounter Discontinued Medications Medication Sig Discontinue Reason Start Date End Da te aspirin (ASPIR-81 ORAL) Take by mouth. Discontinued by another clinician 12/27/2024 docusate sodium (COLACE) 100 mg capsule Take 1 capsule (100 mg total) by mouth 1 (one) time each day if needed. Discontinued by another clinician 12/27/2024 glipiZIDE (GLUCOTROL) 5 mg tablet Take 0.5 Tablets by mouth daily. Discontinued by another clinician 12/27/2024 magnesium hydroxide (MILK OF MAGNESIA) 400 mg/5 mL suspension Take 30 mL by mouth at bedtime as needed. Discontinued by another clinician 12/27/2024 potassium chloride 20 mEq tablet extended release Take 1 tablet by mouth 1 (one) time each day. Discontinued by another clinician 12/27/2024 documented as of this encounter Historical Medications * This list may reflect changes made after this encounter. penicillin v potassium (VEETID) 500 mg tablet Take 1 tablet (500 mg total) by mouth 2 (two) times a day. lisinopriL (PRINIVIL,ZESTRI L) 5 mg tablet Take 1 tablet (5 mg total) by mouth 1 (one) time each day. lactulose (CHRONULAC) solution Take 15 mL (10 g total) by mouth 1 (one) time each day. camphor-menthoL (SARNA) lotion Apply topically if needed for itching. methyl salicylate-menth ol 15-10 % ointment Apply topically 3 (three) times a day if needed. added in this encounter Care Teams Visual Merchandising Associate Relationship Specialty Start Date End Date Chris Huggins MD [address] [place] [address] PCP - General Internal Medicine 12/23/24 documented as of this encounter
--- OUTSIDE RECORDS SUMMARY | 2024-12-31 15:03 | XMS_ITS ---
Author Name [facility] [facility] [place] [facility] [place] Address [address] [place] [address] Care Team Providers Care Commercial Credit Analyst Name Role Phone NATAN ISABELDENVEENA Primary Care [...] Murphy's Name Patient's Relationship to Policy Murphy [facility] (WNR) MEDICARE ADVANTAGE [facility] (WNR) Oct 27, 2013 [facility] [id number] PATIENT Selected Encounter This section includes the information on record at [place] for the Encounter. Date/Time Encounter Type Encounter Description Reason Pro vider Source Dec 28, 2024 04:16 PM Outpatient Encounter PRIMARY CARE/MEDICINE IHE Encounter Template Text not used by [facility] Encounter Notes: All associated encounter notes This section contains the clinical notes associated to the Encounter. Date/Time Encounter Note(s) Provider Source Dec 28, 2024 04:16 PM LETTERS: LOCAL TITLE: PATIENT LETTER (T) STANDARD TITLE: LETTERS DATE OF NOTE: DEC 28, 2024@16:16 ENTRY DATE: DEC 28, 2024@16:16:37 AUTHOR: LIZETTE CARTAGENA COSIGNER: URGENCY: STATUS: COMPLETED PATIENT LETTER (T) Has [facility] Toll Free Number Primary Care Telephone Assistance can be reached at extension [phone] [facility] scheduling can be reached at extension [phone] [facility] scheduling can be reached at ext [phone] AZALEA GONSALEZ [address] [place] [address], [address] Date: DEC 28, 2024 Dear [place]: Thank you for choosing [facility] as your primary choice for health care. As a partner in your health care, we are attempting to contact you because we have been unsuccessful in reaching you by phone. We want to assure you that we are doing everything possible to schedule veterans for their appointments. Please call us at [phone] to speak with a staff member who can assist you with securing an appointment. Thank you for your service and we look forward to hearing from you soon. 12/28/2024 ADDENDUM STATUS: COMPLETED THIS HOUSING SPECIALIST MAILED LETTER TO . /luis/ HANK CARTAGENA ADVANCED WOVEN BLIND LOOM TENDER Signed: 12/28/2024 16:17 Sincerely, Your Primary Care Team [facility] [address] [address] [place] [address] [phone] [facility] [address] [place] [address] [place] [address] [phone] [facility] [address] [facility],1st Floor [address] [place] [address] [place] [address] HANK CARTAGENA [place]
--- OUTSIDE RECORDS SUMMARY | 2024-12-31 15:03 | XMS_ITS | Continuity of Care Document ---
Author Name [facility] Organization [facility] Care Team Providers Care Project Management Engineer Name Role Phone [facility] Unavailable Unavailable Medications Combined list of outpatient [...] Site Reaction Lot Number CVX Code Drug Community Living Specialist Status Comments Source INFLUENZA, UNSPECIFIED FORMULATION 2021 [...] [facility] [id number] 07/16 [facility] [id number] 07/25 [facility]counter [id number] 07/30 [facility]counter [id number] 08/06 [facility] [id number] 08/12 [facility] [id number] 08/12 [facility]counter [id number] 08/21 [facility] [id number] 08/25 [facility]counter [id number] 09/17 [facility] [id number] 10/06 [facility]counter [id number] 11/03 [facility] [id number] 11/05 [facility] [id number] 11/14 [facility] [id number] 11/25 [facility] [id number] 01/12 [facility] [id number] 05/17 [facility] [id number] 12/23 [facility] En[facility] [id number] 12/28 [facility] Social History Combined list of available smoking, tobacco, and other social history from Department of Defense and [facility] Affairs facilities. Social History Type Response Date Comment Sourc e Tobacco smoking status [facility]-TOBACCO NEVER USED 12/03/19 23 [place]
--- OUTSIDE RECORDS SUMMARY | 2024-12-31 15:03 | XMS_ITS | Encounter Summary ---
Author Organization [place] [address] Care Team Providers Care Handyperson Name Role Phone Chris Huggins MD Primary Care Provider [phone] Encounter Details Date Type Department Care Team (Late st Contact Info) Description 12/27/2024 Telephone [facility] [address] [place] [phone] Bashir Morales NP [address] [place] [address] [address] [place] [address] Social History Tobacco Use Types Packs/Day Years [...] as of this encounter Progress Notes * Janna Rodriguez MA - 12/27/2024 3:05 PM EST Office note, EKG, and paperwork from [facility] dated 12/27/24 was faxed to [phone]. Confirmation was received from [employer]. documented in this encounter Plan of Treatment Upcoming Encounters Date Type Department Care Team (Late st Contact Info) Description 06/30/2025 2:00 PM EDT Office Visit [facility] Cardiology [address] [place] [address] Lacho Canada MD [address] [place] [address],[address] [address] documented as of this encounter Visit Diagnoses Not on filedocumented in this encounter Care Teams Handyperson Relationship Specialty Start Date End Date Chris Huggins MD [address] [place] [address] PCP - General Internal Medicine 12/23/24 documented as of this encounter
--- OUTSIDE RECORDS SUMMARY | 2024-12-31 15:03 | XMS_ITS | Clinical Summary ---
Author Organization [facility] Address [address] [facility] [address] [place] [address] Phone Care Team Providers Care Spray Rig Operator Name Role Phone Chris Newman MD Primary Care Provider [phone] Allergies No known active allergies Medications acetaminophen [...] AM EST) Hemoglobin A1C 8.1(H) (4.0-5.6) % [facility] Comment: MONITORING: In known diabetic patients, hemoglobin [...] Supplement 1 Testing performed or reported by [facility], a Service of [facility], [address] [place] [address] Isaac Flores MD, Salesforce Consultant [facility]# [id number] 11/29/2021 8:16 AM EST 11/29/2021 8:26 AM EST us Otoniel Peacock MD LAB BLOOD ORDERABLES Final Re sult [facility] from Last 3 Months or Most Recently Relevant to Health Maintenance Insurance [facility] [place] [id number] [employer] Care Teams Spray Rig Operator Relationship Specialty Start Date End Date Chris Newman MD [address] PCP - General Internal Medicine 12/12/22
--- OUTSIDE RECORDS SUMMARY | 2024-12-31 15:03 | XMS_ITS | Encounter Summary ---
Author Organization [facility] [place] [address] Care Team Providers Care Barn Manager Name Role Phone Unavailable Primary Care Provider Unavailabl e Encounter Details Date Type Department Care Team (Late st Contact Info) Description 11/30/2024 10:15 PM EST Ancillary Procedure [facility] [address] [facility] [address] [place] [phone] Social History Tobacco Use Types Packs/Day Years [...] as of this encounter Plan of Treatment Upcoming Encounters Date Type Department Care Team (Late st Contact Info) Description 06/30/2025 2:00 PM EDT Office Visit [facility] [place] [address] [place] [phone] Lacho Canada MD [address] [place] [address],[address] [address] documented as of this encounter Procedures Procedure Name Priority Date/Time Associated Diagnosis Comments CARDIAC DEVICE CHECK- REMOTE- MURJ Routine 11/30/2024 10:10 PM EST documented in this encounter Results * Cardiac device check - Remote- MURJ (11/30/2024 10:10 PM EST) Date Time Interrogation Session [id number] CV DEVICE CHECK Type Interrogation Session Remote CV DEVICE CHECK Implantable Pulse Generator Behavioral Therapy Coordinator MDT CV DEVICE CHECK Implantable Pulse Generator Type IPG CV DEVICE CHECK Implantable Pulse Generator Model [id number] CV DEVICE CHECK Implantable Pulse Generator Serial Number [id number] CV DEVICE CHECK Implantable Pulse Generator Implant Date 20230130 CV DEVICE CHECK Battery Remaining Longevity 96.0 CV DEVICE CHECK Battery Voltage 3.020 CV D EVICE CHECK Battery MACHINE PULLER AND LASTER Trigger 2.558 CV DEVICE CHECK Battery Status [...]
== END 2024-12-31 13:20 | disposition home or self-care (01) ==
LOC: HO.HSH 13:19
PROVIDERS: Visit Provider Internal Medicine
DX: L03.90 Cellulitis, unspecified (principal)
CPT/HCPCS: 36415; 80048; 83880; 85025; 85652; 87070; 87205